=== PATIENT | female | born 1980 | race Caucasian/White ===

== ENCOUNTER 2021-02-07 11:01 | Inpatient (IN) ==
[2021-02-07] MEDS ORDERED: IOPAMIDOL 100 ML BOTTLE IV ONE (11:02)
[2021-02-07 11:45] LABS: POC Blood Urea Nitrogen 3 mg/dL (6-20); POC CO2 23 mmol/L (22-30); POC Chloride 104 mEq/L (96-108); POC Creatinine 0.7 mg/dL (0.6-1.2); POC Glucose, Random 97 mg/dL (70-105); POC Hematocrit 42 % (36-48); POC Potassium 4.3 mEql/L (3.3-5.1); POC Sodium 137 mEq/L (133-145)
--- NOTE | 2021-02-07 12:12 | Emergency Department Note ---
Abdominal Pain HPI General Chief Complaint: Abdominal Pain Stated Complaint: abdominal pain Time Seen by Provider: 02/07/21 11:15 Source: patient Mode of arrival: ambulatory Limitations: no limitations History of Present Illness HPI Narrative: Narrative: Patient presents emergency department with a chief complaint abdominal pain. She reports symptoms started last night they were mild to moderate in severity and more diffuse. This morning the patient reports a few hours ago her pain increased in severity it is more right lower quadrant. There is associated nausea without vomiting patient reports normal bowel movements. She reports history of IBS. Related Data Home Medications Medication Instructions Recorded Confirmed ibuprofen 200 mg capsule (Advil 200 mg PO .COMPLEX 06/19/20 02/07/21 Liqui-Gel) Previous Rx's Medication Instructions Recorded albuterol sulfate 90 mcg/actuation 1 inh INHALATION QID #8.5 g 09/28/20 aerosol inhaler benzonatate 100 mg capsule 100 mg PO TID PRN #30 cap 09/28/20 (Testomas Rivera) oxybutynin chloride 10 mg 10 mg PO QDAY #90 tab 10/16/20 tablet,extended release 24 hr fluticasone propionate 115 2 puff INHALATION BID #12 g 10/24/20 mcg-salmeterol 21 mcg/actuation HFA inhaler (Advair HFA) tramadol 50 mg tablet 50 mg PO BID PRN #60 tab 12/11/20 clonazepam 0.5 mg tablet 0.5 mg PO QDAY PRN #20 tab 12/14/20 desvenlafaxine succinate 50 mg 50 mg PO QDAY 90 Days #90 tab 12/14/20 tablet,extended release 24 hr etonogestrel 0.12 mg-ethinyl 1 vag ring VAGINAL Q4W #3 ea 01/23/21 estradiol 0.015 mg/24 hr vaginal ring (NuvaRing) nortriptyline 10 mg capsule 10 mg PO QHS #90 cap 01/23/21 Allergies Allergy/AdvReac Type Severity Reaction Status Date / Time latex AdvReac Unknown Itching Verified 02/07/21 11:04 peas AdvReac Anaphylaxis Uncoded 12/14/20 16:02 Review of Systems ROS ROS Narrative: Narrative: All systems ED: reviewed and negative except as stated. PFSH Narrative Patient History Narrative: Narrative: Medical/Surgical/Family History All Active Problems (Updated 02/07/21 @ 17:36 by Willard Jamil MD) Acute appendicitis (Acute) Acute appendicitis (Acute) Menorrhagia (Acute) PTSD (post-traumatic stress disorder) (Chronic) Generalized anxiety disorder (Acute) Panic attacks (Chronic) Major depressive disorder, recurrent (Acute) Lupus (systemic lupus erythematosus) (Acute) Chronic fatigue (Acute) Sjogren's syndrome (Acute) Spina bifida occulta (Acute) Chronic insomnia (Acute) Shoulder impingement syndrome (Acute) Lumbosacral dysfunction (Acute) Overactive bladder (Acute) Shortness of breath (Acute) Cough (Acute) Medical History Allergies Arthritis Asthma Chronic fatigue Chronic insomnia Depression Fibromyalgia RICHARD (generalized anxiety disorder) Lupus (systemic lupus erythematosus) Mixed connective tissue disease OCD (obsessive compulsive disorder) Panic disorder [episodic paroxysmal anxiety] PTSD (post-traumatic stress disorder) Sjogren's syndrome Spina bifida occulta Surgical History History of 2008 History of dilatation and curettage 2002 Family History Grandfather Diabetes Maternal Heart attack High cholesterol HBP (high blood pressure) Paternal Mother Cancer Breast cancer Bone cancer Father HBP (high blood pressure) Methamphetamine abuse Sister Somatization disorder Anterior subcapsular polar infantile and juvenile cataract, bilateral Bipolar 1 disorder Family/Other Chronic post-traumatic stress disorder (PTSD) after com bat Social History Smoking Status: Former smoker Alcohol Intake Frequency: holiday/special occasion only Substance Use: marijuana Exam Narrative Narrative: Narrative: Vital signs noted General: Awake. Alert. No distress. HEENT: NCAT PERRL EOMI. No conjunctivitis. No pharyngitis. Membranes moist. No otitis. No effusion. No rhinitis. Neck: No meningeal signs. No PTP. No adenopathy. No stridor. No masses. No STS. Cardiovascular: RRR. No murmur. No rubs. No gallops. Respiratory: No respiratory distress. Breath sounds equal. Lungs clear. Gastrointestinal: Soft. Tenderness to palpation the right lower quadrant there is no guarding rigidity or other peritoneal signs Keane sign is negative, heeltap test is negative Musculoskeletal: No pain. No soft tissue swelling. Good ROM. No signs injury Skin: Warm. Dry. No rash General Limitations: no limitations Course Vital Signs Vital signs: Vital Signs Temperature 97.5 F 02/07/21 11:02 Pulse Rate 87 02/07/21 11:02 Respiratory Rate 16 02/07/21 11:02 Blood Pressure 140/87 02/07/21 11:02 Pulse Oximetry (%) 98 02/07/21 11:02 Temperature 97.5 F 02/07/21 11:02 Pulse Rate 108 H 02/07/21 17:00 Respiratory Rate 15 02/07/21 17:00 Blood Pressure 123/83 02/07/21 17:00 Pulse Oximetry (%) 100 02/07/21 17:00 MDM MDM Narrative Medical decision making narrative: Narrative:Patient presents with right lower quadrant pain labs are concerning for elevated white blood cell count. CT scan shows evidence of uncomplicated appendicitis. I did speak with Dr. Gonzalez who plans to take the patient to surgery Zosyn was started. Lab Data Result diagrams: 02/07/21 11:37 Labs: Lab Results 02/07/21 02/07/21 02/07/21 Range/Units 11:12 11:37 11:37 WBC 13.1 H (4.5-11.0) K/mcL RBC 4.56 (3.59-5.38) M/mcL Hgb 14.4 (11.2-15.7) g/dL Hct 41.5 (34.1-44.9) % POC Hct 42 (36-48) % MCV 91.0 (80.0-100.0) fL MCH 31.6 (26.0-34.0) pg MCHC 34.7 (31.0-36.0) g/dL RDW 11.8 (11.5-14.5) % Plt Count 206 (140-440) K/mcL MPV 11.0 H (7.4-10.4) fL Neut % (Auto) 77.7 (38.0-78.0) % Lymph % (Auto) 14.4 L (15.5-49.0) % [place] % (Auto) 6.5 (1.0-12.0) % Eos % (Auto) 1.1 (0.0-7.0) % Baso % (Auto) 0.3 (0.0-2.0) % Lymph # (Auto) 1.89 (1.50-4.80) K/mcL [place] # (Auto) 0.85 (0.10-0.90) K/mcL Eos # (Auto) 0.14 (0.00-0.70) K/mcL Baso # (Auto) 0.04 (0.00-0.30) K/mcL Absolute Neutrophils 10.17 H (1.80-8.00) K/mcL POC Sodium 137 (133-145) mEq/L POC Potassium 4.3 (3.3-5.1) mEql/L POC Chloride 104 (96-108) mEq/L POC Total CO2 23 (22-30) mmol/L POC BUN 3 L (6-20) mg/dL POC Creatinine 0.7 (0.6-1.2) mg/dL POC Glucose 97 (70-105) mg/dL POC WB Ioniz Calcium 1.20 (1.16-1.32) mmEq/L Total Bilirubin 0.3 (0.1-1.0) mg/dL Direct Bilirubin < 0.2 (0-0.3) mg/dL AST 22 (<32) U/L ALT 31 (<40) U/L Alkaline Phosphatase 71 (39-117) U/L Total Protein 7.2 (5.9-8.4) gm/dL Albumin 4.3 (3.2-5.2) gm/dL Globulin 2.9 (2.2-3.7) gm/dL Lipase 20 (7-60) U/L Urine Color Straw Urine Appearance Clear (Clear) Urine pH 7.0 (5.0-9.0) Ur Specific [place] 1.003 (1.000-1.035) Urine Protein Negative (Negative) mg/dL Urine Glucose (UA) Negative (Negative) mg/dL Urine Ketones Negative (Negative) mg/dL Urine Occult Blood 0.03 (Negative) mg/dL Urine Nitrate Negative (Negative) Urine Bilirubin Negative (Negative) mg/dL Urine Urobilinogen Negative mg/dL Ur Leukocyte Esterase Negative (Negative) /uL Urine RBC 1 (0-3) /hpf Urine WBC 0 (0-4) /hpf Ur Squamous Epith Cells 1 (0-4) /hpf Urine Bacteria Few A (0) /hpf Ur Culture Indicated? Yes ED POC Tests ED POC Tests: ALANNAH - SARS Antigen Negative HCG POC Results Negative Discharge Plan Patient/Caregiver Discharge Instructions Pt seen by [facility]/PA only: No Clinical Impression: Acute appendicitis Patient Disposition: Xfer As Inpt ([facility]) Discharge Date/Time: 02/07/21 15:15
[2021-02-07 12:13] LABS: Basophils # (Auto) 0.04 K/mcL (0.00-0.30); Basophils % (Auto) 0.3 % (0.0-2.0); Eosinophils # (Auto) 0.14 K/mcL (0.00-0.70); Eosinophils % (Auto) 1.1 % (0.0-7.0); Hematocrit 41.5 % (34.1-44.9); Hemoglobin 14.4 g/dL (11.2-15.7); Lymphocytes # (Auto) 1.89 K/mcL (1.50-4.80); Lymphocytes % (Auto) 14.4 % (15.5-49.0); Mean Corpuscular HGB Conc 34.7 g/dL (31.0-36.0); Monocytes # (Auto) 0.85 K/mcL (0.10-0.90); Monocytes % (Auto) 6.5 % (1.0-12.0); Neutrophils % (Auto) 77.7 % (38.0-78.0); Platelet Count 206 K/mcL (140-440); RBC 4.56 M/mcL (3.59-5.38); Red Cell Distribution Width 11.8 % (11.5-14.5); WBC 13.1 K/mcL (4.5-11.0)
[2021-02-07 12:14] LABS: Appearance,Urine CLEAR (Clear); Bacteria,Urine FEW /hpf (0); Bilirubin,Urine Negative (Negative); Color,Urine STRAW; Culture Indicated,Urine Yes; Glucose,Urine (UA) Negative (Negative); Ketones,Urine Negative (Negative); Leukocyte Esterase,Urine Negative /uL (Negative); Nitrate,Urine Negative (Negative); Protein,Urine Negative (Negative); Specific Gravity,Urine 1.003 (1.000-1.035); Urine Blood 0.03 mg/dL (Negative); Urine RBC 1 /hpf (0-3); Urine Squamous Epithelial Cell 1 /hpf (0-4); Urine WBC 0 /hpf (0-4); Urobilinogen,Urine Negative
[2021-02-07 12:32] LABS: ALT/SGPT 31 U/L (<40); AST/SGOT 22 U/L (<32); Albumin 4.3 gm/dL (3.2-5.2); Alkaline Phosphatase 71 U/L (39-117); Bilirubin,Direct < 0.2 mg/dL (0-0.3); Bilirubin,Total 0.3 mg/dL (0.1-1.0); Globulin 2.9 gm/dL (2.2-3.7)
--- NOTE | 2021-02-07 13:05 | Cat Scan Report ---
CLINICAL INFORMATION: Right lower quadrant pain COMPARISON: None. TECHNIQUE: Following enteric contrast, 80 cc of Isovue-370 were injected intravenously, and 60 seconds later, 0.625 mm helical slices were obtained from the mid heart through the subtrochanteric regions. Following reconstruction, 2.5 mm sagittal, coronal and axial reformatted images were processed and reviewed at bone, lung and soft tissue windows. Five minutes later, 0.625 mm helical slices were obtained from the mid heart through the kidneys and viewed at soft tissue windows.The exam was performed using radiation dose optimization techniques including, but not limited to, automated exposure control, adjustment of the mA and/or kV according to patient size and use of iterative reconstruction technique. FINDINGS: The lung bases show subsegmental atelectasis.. No effusions. The visualized heart is grossly normal. Abdominal images show the gallbladder and bile ducts, liver, right kidney, adrenal glands, spleen, pancreas and aorta, including aortic branches, are normal in size, configuration and attenuation without focal lesion. Atrial or nonobstructing stone is seen within the lateral left renal pelvis. There is no free air, free fluid or adenopathy. Pelvic images show normal urinary bladder. Uterus is anteflexed and mildly enlarged: 10.6 x 3.5 cm. Patchy inhomogeneous low-attenuation and the myometrium suggests adenomyosis and/or small fibroids. A 14 mm cyst is seen in the left ovary. Right ovary is normal. The appendix is located in the medial pericecal region and is dilated with a diameter of 11 mm. There are also appendicoliths within the appendiceal lumen, wall thickening and periappendiceal inflammation compatible simple appendicitis. The stomach, small bowel, and large bowel are grossly normal. Bone windows show no osseous abnormality IMPRESSION: 1. Simple appendicitis. The appendix is located in the medial pericecal region. 2. Moderate uterine enlargement with scattered low-attenuation foci in the myometrium compatible with adenomyosis and/or small fibroids. 3. 3 mm nonobstructing stone within the lateral left renal pelvis Interpreted and Authenticated by: Dom Barry 02/07/21
[2021-02-07] MEDS ORDERED: PIPERACILLIN SODIUM/TAZOBACTAM 3.375 GM in DEXTROSE 5% IN WATER 50 ML IV ONE (13:29)
[2021-02-07] MEDS ORDERED: LORazepam 2 MG/ML VIAL IV ONE (13:34)
--- NOTE | 2021-02-07 15:10 | General Surg History&Physical ---
HPI History of Present Illness Patient information: Note initiated : 02/07/21 at 3:03 pm Service Date, if different from initiated Date: [] Patient: Lexus Koch a 40 y/o F admitted on for abdominal pain. Chief Complaint: [] Chief complaint: Acute appendicitis History of present illness: Ms. Koch is a 40 year old F with history of acute onset of lower abdominal pain in her mid hypogastrium about 5 PM last evening. The pain progressed throughout the night. She did not have nausea or vomiting. She finally came to the emergency room where evaluation revealed mild leukocytosis with an inflamed appendix with periappendiceal tissue fluid and appendiceal enlargement. Patient remains symptomatic and is counseled for appendectomy. Review of Systems All systems: reviewed and no additional remarkable complaints except as stated Constitutional Constitutional: Present fatigue, lethargy and malaise Gastrointestinal Gastrointestinal: Present other (Irritable bowel syndrome needing) Musculoskeletal Musculoskeletal: Present arthralgias, muscle cramps and myalgias Additional comments: Fibromyalgia PFSH PFSH All Active Problems (Updated 02/07/21 @ 15:09 by Sabiha Gonzalez MD) Acute appendicitis (Acute) Menorrhagia (Acute) PTSD (post-traumatic stress disorder) (Chronic) Generalized anxiety disorder (Acute) Panic attacks (Chronic) Major depressive disorder, recurrent (Acute) Lupus (systemic lupus erythematosus) (Acute) Chronic fatigue (Acute) Sjogren's syndrome (Acute) Spina bifida occulta (Acute) Chronic insomnia (Acute) Shoulder impingement syndrome (Acute) Lumbosacral dysfunction (Acute) Overactive bladder (Acute) Shortness of breath (Acute) Cough (Acute) Medical History Allergies Arthritis Asthma Chronic fatigue Chronic insomnia Depression Fibromyalgia RICHARD (generalized anxiety disorder) Lupus (systemic lupus erythematosus) Mixed connective tissue disease OCD (obsessive compulsive disorder) Panic disorder [episodic paroxysmal anxiety] PTSD (post-traumatic stress disorder) Sjogren's syndrome Spina bifida occulta Surgical History History of 2008 History of dilatation and curettage 2002 Family History Grandfather Diabetes Maternal Heart attack High cholesterol HBP (high blood pressure) Paternal Mother Cancer Breast cancer Bone cancer Father HBP (high blood pressure) Methamphetamine abuse Sister Somatization disorder Anterior subcapsular polar infantile and juvenile cataract, bilateral Bipolar 1 disorder Family/Other Chronic post-traumatic stress disorder (PTSD) after combat Social History marital status: occupational status: employed occupation: [employer] smoking status: Current every day smoker tobacco type: e-cigarettes and Former smoker quit date: 03/28/18 pack-years: 20 alcohol intake frequency: holiday/special occasion only substance use type: marijuana MEDS/ALLERGIES Home Medications and Allergies Home Medications Medication Instructions Recorded Confirmed Type ibuprofen 200 mg capsule (Advil 200 mg PO .COMPLEX 06/19/20 02/07/21 History Liqui-Gel) albuterol sulfate 90 mcg/actuation 1 inh INHALATION QID #8.5 g 09/28/20 02/07/21 Rx aerosol inhaler benzonatate 100 mg capsule 100 mg PO TID PRN #30 cap 09/28/20 02/07/21 Rx (Testomas Rivera) oxybutynin chloride 10 mg 10 mg PO QDAY #90 tab 10/16/20 02/07/21 Rx tablet,extended release 24 hr fluticasone propionate 115 2 puff INHALATION BID #12 g 10/24/20 02/07/21 Rx mcg-salmeterol 21 mcg/actuation HFA inhaler (Advair HFA) tramadol 50 mg tablet 50 mg PO BID PRN #60 tab 12/11/20 02/07/21 Rx clonazepam 0.5 mg tablet 0.5 mg PO QDAY PRN #20 tab 12/14/20 02/07/21 Rx desvenlafaxine succinate 50 mg 50 mg PO QDAY 90 Days #90 tab 12/14/20 02/07/21 Rx tablet,extended release 24 hr etonogestrel 0.12 mg-ethinyl 1 vag ring VAGINAL Q4W #3 ea 01/23/21 02/07/21 Rx estradiol 0.015 mg/24 hr vaginal ring (NuvaRing) nortriptyline 10 mg capsule 10 mg PO QHS #90 cap 01/23/21 02/07/21 Rx Allergies Allergy/AdvReac Type Severity Reaction Status Date / Time latex AdvReac Unknown Itching Verified 02/07/21 11:04 peas AdvReac Anaphylaxis Uncoded 12/14/20 16:02 Physical Examination Vital Signs Vital signs: Temp Pulse Resp BP Pulse Ox 97.5 F 97 H 16 116/88 98 02/07/21 11:02 02/07/21 14:31 02/07/21 11:02 02/07/21 14:31 02/07/21 14:31 General physical appearance General physical exam: well developed, moderate distress and moderate pain Eyes Eye exam: PERRL and normal ocular movement ENT ENT exam: normal mucosa Head Head exam IM: Present atraumatic, normal inspection and normocephalic Neck Neck exam: no masses, no bruits, trachea midline, no lymphadenopathy and no venous distension Cardiovascular Cardiovascular exam IM: Present normal rate and rhythm, RRR, +S1 and +S2; Absent bradycardia or JVD Respiratory Respiratory exam: normal expansion, normal respiratory effort and clear to auscultation Abdomen Abdomen: Present tender (Tenderness to palpation in hypogastrium and right lower quadrant with guarding) and guarding Integumentary Integumentary: Present no rash, no growths, no abnormal pigmentation and other Neurologic Neurologic: Present normal coordination and normal sensation Musculoskeletal Musculoskeletal: Present normal gait and normal posture Psychiatric Psychiatric: Present oriented to time, oriented to person, oriented to place, speech is normal and memory intact Results Labs Result diagrams: 02/07/21 11:37 Labs: Abnormal lab results 02/07/21 02/07/21 02/07/21 Range/Units 11:12 11:37 11:37 WBC 13.1 H (4.5-11.0) K/mcL MPV 11.0 H (7.4-10.4) fL Lymph % (Auto) 14.4 L (15.5-49.0) % Absolute Neutrophils 10.17 H (1.80-8.00) K/mcL POC BUN 3 L (6-20) mg/dL Urine Bacteria Few A (0) /hpf Diabetes panel 02/07/21 Range/Units 11:37 AST 22 (<32) U/L ALT 31 (<40) U/L Alkaline Phosphatase 71 (39-117) U/L Total Protein 7.2 (5.9-8.4) gm/dL Albumin 4.3 (3.2-5.2) gm/dL Calcium panel 02/07/21 Range/Units 11:37 Albumin 4.3 (3.2-5.2) gm/dL Adrenal panel 02/07/21 Range/Units 11:37 Total Bilirubin 0.3 (0.1-1.0) mg/dL AST 22 (<32) U/L ALT 31 (<40) U/L Alkaline Phosphatase 71 (39-117) U/L Total Protein 7.2 (5.9-8.4) gm/dL Albumin 4.3 (3.2-5.2) gm/dL All other labs normal. A/P Assessment and plan (1) Acute appendicitis: Status: Acute (2) Generalized anxiety disorder: Status: Acute (3) Major depressive disorder, recurrent: Status: Acute Comment: moderately severe Qualifiers: Active/Remission status: currently active Major depression episode severity: moderate Qualified Code(s): F33.1 - Major depressive disorder, recurrent, moderate (4) Sjogren's syndrome: Status: Acute Qualifiers: Sjogren's organ involvement: unspecified organ involvement Qualified Code(s): M35.00 - Sicca syndrome, unspecified (5) PTSD (post-traumatic stress disorder): Status: Chronic Narrative A/P Narrative: Patient is counseled for laparoscopic appendectomy. It will be performed later this afternoon. Zosyn 3.375 g IV every 6 Time Spent With Patient Time: Total time spent is greater than 50% in coordination of care (as documented) at patient's floor/unit and/or counseling patient:
[2021-02-07] MEDS ORDERED: PROPOFOL 200 MG/20 ML VIAL IV ONE (15:28)
[2021-02-07] MEDS ORDERED: fentaNYL 100 MCG/2 ML VIAL IV ONE ×2 (15:28→23:30)
[2021-02-07] MEDS ORDERED: LIDOCAINE HCL/PF 100 MG/5 ML SYRINGE IV ONE ×2 (15:28→23:30)
[2021-02-07] MEDS ORDERED: ONDANSETRON 4 MG/2 ML VIAL ONE ×2 (15:28→23:30)
[2021-02-07] MEDS ORDERED: SUGAMMADEX SODIUM 200 MG/2 ML VIAL IV ONE ×2 (15:28→23:30)
[2021-02-07] MEDS ORDERED: ROCURONIUM 10 MG/ML ML IV ONE ×2 (15:28→23:30)
[2021-02-07] MEDS ORDERED: DEXAMETHASONE 10 MG/ML VIAL ONE ×2 (15:28→23:30)
[2021-02-07] MEDS ORDERED: MIDAZOLAM 2 MG/2 ML VIAL ONE (15:28)
[2021-02-07] MEDS ORDERED: KETAMINE 50 MG/ML Syringe (ANEST) IV ONE ×2 (15:28→23:30)
[2021-02-07] MEDS ORDERED: ESMOLOL 100 MG/10 ML VIAL IV ONE (15:28)
[2021-02-07] MEDS ORDERED: GLYCOPYRROLATE 0.2 MG/ML VIAL IV ONE ×2 (15:28→23:30)
[2021-02-07] MEDS ORDERED: BENZOCAINE/MENTHOL 1 LOZENGE PO PRN (16:10)
[2021-02-07] MEDS ORDERED: MEPERIDINE 50 MG/ML VIAL IM PRN (16:10)
[2021-02-07] MEDS ORDERED: ACETAMINOPHEN 1,000 MG/100 ML BAG IV ONE (16:10)
[2021-02-07] MEDS ORDERED: IPRATROPIUM/ALBUTEROL 3 ML AMPUL.NEB NEB PRN (16:10)
[2021-02-07] MEDS ORDERED: ONDANSETRON 4 MG/2 ML VIAL IV PRN (16:10)
[2021-02-07] MEDS ORDERED: PROMETHAZINE 25 MG/ML VIAL IM PRN (16:10)
[2021-02-07] MEDS ORDERED: KETOROLAC 30 MG/ML VIAL IV PRN (16:10)
[2021-02-07] MEDS ORDERED: LACTATED RINGERS 1,000 ML IV SCH (16:15)
[2021-02-07] MEDS ORDERED: ONDANSETRON 4 MG ODT TABLET SL PRN (16:19)
[2021-02-07] MEDS ORDERED: HYDROmorphone 1 MG/ML SYRINGE IV PRN (16:19)
--- NOTE | 2021-02-07 16:19 | Brief Operative Note ---
Brief Operative Note Date of procedure: 02/07/21 Pre-op diagnosis: ACUTE APPENDICITIS Post-op diagnosis: other (ACUTE APPENDICITIS) Procedure: LAPAROSCOPIC APPENDECTOMY Grafts/Implants: No Anesthesia: GETA Findings: ACUTE SUPPURATIVE APPENDICITIS Complications: none Surgeon: Sabiha Gonzalez Estimated blood loss (cc): 10 Specimens Removed/Pathology: other (APPENDIX) Condition: stable Disposition: PACU
[2021-02-07] MEDS: fentaNYL 100 MCG/2 ML VIAL IV PRN ×2 (16:55→16:58)
[2021-02-07] MEDS: LACTATED RINGERS 1,000 ML IV SCH (17:12)
[2021-02-07] MEDS: PIPERACILLIN SODIUM/TAZOBACTAM 3.375 GM in DEXTROSE 5% IN WATER 50 ML IV SCH (18:02)
[2021-02-07] MEDS: ACETAMINOPHEN 1,000 MG/100 ML BAG IV SCH ×2 (18:50→23:21)
[2021-02-07] MEDS: HYDROmorphone 0.5 MG/0.5 ML SYRINGE IV PRN (20:26)
[2021-02-07] MEDS ORDERED: LACTATED RINGERS 1,000 ML IV ONE (20:49)
[2021-02-07] MEDS: 0.9 % SODIUM CHLORIDE 10 ML SYRINGE IV SCH (20:52)
[2021-02-07] MEDS: ONDANSETRON 4 MG/2 ML VIAL IV PRN (21:11)
[2021-02-07 21:18] LABS: POC Blood Urea Nitrogen 4 mg/dL (6-20); POC CO2 18 mmol/L (22-30); POC Calcium, Ionized 1.08 mmEq/L (1.16-1.32); POC Chloride 104 mEq/L (96-108); POC Creatinine 0.8 mg/dL (0.6-1.2); POC Glucose, Random 197 mg/dL (70-105); POC Hematocrit 33 % (36-48); POC Sodium 135 mEq/L (133-145)
[2021-02-07] MEDS ORDERED: ALBUTEROL SULFATE 200 PUFF INHALER INH PRN (21:52)
[2021-02-07] MEDS ORDERED: clonazePAM 0.5 MG TABLET PO PRN (21:52)
[2021-02-07] MEDS ORDERED: traMADol 50 MG TABLET PO PRN (21:52)
[2021-02-07 21:54] LABS: Hemoglobin 11.6 g/dL (11.2-15.7)
[2021-02-07] MEDS ORDERED: METOPROLOL TARTRATE 5 MG/5 ML VIAL IV PRN (21:54)
[2021-02-07] MEDS ORDERED: IBUPROFEN 200 MG PO SCH (22:00)
--- NOTE | 2021-02-07 22:12 | Internal Med History&Physical ---
HPI History of Present Illness Patient information: Note initiated : 02/07/21 at 9:58 pm Service Date, if different from initiated Date: [] Patient: Lexus Koch a 40 y/o F admitted on for abdominal pain. Chief Complaint: [tachycardia and orthostatic hypotension] Chief complaint: tachycardia and orthostatic hypotension History of present illness: Ms. Koch is a 40 year old F history of anxiety and irritable bowel syndrome, presented to the ED earlier today and was being diagnosed with appendicitis. Dr. Gonzalez performed an uncomplicated laparoscopic appendectomy with estimated blood loss of 5cc. She tolerated the procedure quite well. During her recovery in PACU, she developed sinus tachycardia with heart rate up from 110s bpm to 150s bpm, and also showing positive orthostatic hypotension. Patient denies any chest pain. She is c/o palpitation as well as anxiety about her overall condition and prognosis. She denies any shortness of breath. Currently denies any abdominal pain as well as any nausea or vomiting. She admitted to have episodes of diarrhea yesterday, and had been placed NPO today since presenting to the ED. ECG performed showing sinus tachycardia, no signs of acute ischemia otherwise. She is receiving her 1st L of fluid bolus. Constitutional Constitutional: Present as per HPI; Absent chills, excessive sweating, fatigue, fever(s) or weakness EENT Eyes: Absent blurry vision, change in vision, loss of vision or other visual disturbances Ears: Absent decreased hearing or tinnitus Nose, mouth and throat: Absent abnormal hearing, dry mouth, headache(s), nasal congestion or sore throat Cardiovascular Cardiovascular: Present palpatations; Absent chest pain, chest pain at rest, edema or irregular heart rhythm Respiratory Respiratory: Absent cough, dyspnea or wheezing Gastrointestinal Gastrointestinal: Absent abdominal pain, constipation, diarrhea, nausea or vomiting Musculoskeletal Musculoskeletal: Absent back pain, deformity, limited range of motion, muscle cramps, muscle weakness or numbness Integumentary Integumentary: Absent lesions, rash or wounds Neurological Neurological: Absent focal weakness, headache(s) or numbness Psychiatric Psychiatric: Present anxiety; Absent depression or hallucinations PFSH PFSH All Active Problems (Updated 02/07/21 @ 22:05 by Michael Higgins MD) Tachycardia (Acute) Acute appendicitis (Acute) Acute appendicitis (Acute) Menorrhagia (Acute) PTSD (post-traumatic stress disorder) (Chronic) Generalized anxiety disorder (Acute) Panic attacks (Chronic) Major depressive disorder, recurrent (Acute) Lupus (systemic lupus erythematosus) (Acute) Chronic fatigue (Acute) Sjogren's syndrome (Acute) Spina bifida occulta (Acute) Chronic insomnia (Acute) Shoulder impingement syndrome (Acute) Lumbosacral dysfunction (Acute) Overactive bladder (Acute) Shortness of breath (Acute) Cough (Acute) Medical History Allergies Arthritis Asthma Chronic fatigue Chronic insomnia Depression Fibromyalgia RICHARD (generalized anxiety disorder) Lupus (systemic lupus erythematosus) Mixed connective tissue disease OCD (obsessive compulsive disorder) Panic disorder [episodic paroxysmal anxiety] PTSD (post-traumatic stress disorder) Sjogren's syndrome Spina bifida occulta Surgical History History of 2008 History of dilatation and curettage 2002 Family History Grandfather Diabetes Maternal Heart attack High cholesterol HBP (high blood pressure) Paternal Mother Cancer Breast cancer Bone cancer Father HBP (high blood pressure) Methamphetamine abuse Sister Somatization disorder Anterior subcapsular polar infantile and juvenile cataract, bilateral Bipolar 1 disorder Family/Other Chronic post-traumatic stress disorder (PTSD) after combat Social History marital status: occupational status: employed occupation: anchor.travel smoking status: Current every day smoker tobacco type: e-cigarettes and Former smoker quit date: 03/28/18 pack-years: 20 alcohol intake frequency: holiday/special occasion only substance use type: marijuana MEDS/ALLERGIES Home Medications and Allergies Home Medications Medication Instructions Recorded Confirmed Type ibuprofen 200 mg capsule (Advil 200 mg PO .COMPLEX 06/19/20 02/07/21 History Liqui-Gel) albuterol sulfate 90 mcg/actuation 1 inh INHALATION QID #8.5 g 09/28/20 02/07/21 Rx aerosol inhaler oxybutynin chloride 10 mg 10 mg PO QDAY #90 tab 10/16/20 02/07/21 Rx tablet,extended release 24 hr tramadol 50 mg tablet 50 mg PO BID PRN #60 tab 12/11/20 02/07/21 Rx clonazepam 0.5 mg tablet 0.5 mg PO QDAY PRN #20 tab 12/14/20 02/07/21 Rx etonogestrel 0.12 mg-ethinyl 1 vag ring VAGINAL Q4W #3 ea 01/23/21 02/07/21 Rx estradiol 0.015 mg/24 hr vaginal ring (NuvaRing) nortriptyline 10 mg capsule 10 mg PO QHS #90 cap 01/23/21 02/07/21 Rx desvenlafaxine 50 mg 50 mg PO QHS 02/07/21 02/07/21 History tablet,extended release 24 hour Allergies Allergy/AdvReac Type Severity Reaction Status Date / Time latex AdvReac Unknown Itching Verified 02/07/21 11:04 peas AdvReac Anaphylaxis Uncoded 12/14/20 16:02 EXAM Constitutional Vitals: Temp Pulse Resp BP Pulse Ox 36.6 C 153 H 15 97/71 95 02/07/21 19:15 02/07/21 21:04 02/07/21 17:00 02/07/21 21:04 02/07/21 21:04 General appearance: average body habitus, cooperative and no acute distress Head Head exam: Present atraumatic and normocephalic Eye Eye exam: Present EOMI and PERRL ENT ENT exam: Present mucous membranes moist, normal exam and normal external ear exam Neck Neck exam: Present normal inspection; Absent lymphadenopathy, tenderness or thyromegaly Respiratory Respiratory exam: Absent accessory muscle use, respiratory distress or wheezes Cardiovascular Cardiovascular exam: Present tachycardia; Absent JVD GI/Abdominal GI/Abdominal exam: Present normal bowel sounds and soft; Absent organomegaly or tenderness Additional comments: 3 laparoscopic surgical incisions without tenderness to palpation or active bleeding Extremities Exam Extremities exam: Present full ROM, normal capillary refill and normal inspection; Absent tenderness Neurological Exam Neurological exam: Present alert, CN II-XII intact and oriented X3; Absent motor sensory deficit Psychiatric Psychiatric exam: Present normal affect and normal mood; Absent anxious or depressed Skin Skin exam: Present dry and intact DATA Data Completed and Pending Labs: Labs from last 24 hours 02/07/21 02/07/21 02/07/21 21:11 20:54 11:37 WBC RBC Hgb 11.6 Hct 35.0 POC Hct 33 L 42 MCV MCH MCHC RDW Plt Count MPV Neut % (Auto) Lymph % (Auto) [place] % (Auto) Eos % (Auto) Baso % (Auto) Lymph # (Auto) [place] # (Auto) Eos # (Auto) Baso # (Auto) Absolute Neutrophils POC Sodium 135 137 POC Potassium 4.0 4.3 POC Chloride 104 104 POC Total CO2 18 L 23 POC BUN 4 L 3 L POC Creatinine 0.8 0.7 POC Glucose 197 H 97 POC WB Ioniz Calcium 1.08 L 1.20 Total Bilirubin 0.3 Direct Bilirubin < 0.2 AST 22 ALT 31 Alkaline Phosphatase 71 Total Protein 7.2 Albumin 4.3 Globulin 2.9 Lipase 20 Urine Color Urine Appearance Urine pH Ur Specific [place] Urine Protein Urine Glucose (UA) Urine Ketones Urine Occult Blood Urine Nitrate Urine Bilirubin Urine Urobilinogen Ur Leukocyte Esterase Urine RBC Urine WBC Ur Squamous Epith Cells Urine Bacteria Ur Culture Indicated? 02/07/21 02/07/21 11:37 11:12 WBC 13.1 H RBC 4.56 Hgb 14.4 Hct 41.5 POC Hct MCV 91.0 MCH 31.6 MCHC 34.7 RDW 11.8 Plt Count 206 MPV 11.0 H Neut % (Auto) 77.7 Lymph % (Auto) 14.4 L [place] % (Auto) 6.5 Eos % (Auto) 1.1 Baso % (Auto) 0.3 Lymph # (Auto) 1.89 [place] # (Auto) 0.85 Eos # (Auto) 0.14 Baso # (Auto) 0.04 Absolute Neutrophils 10.17 H POC Sodium POC Potassium POC Chloride POC Total CO2 POC BUN POC Creatinine POC Glucose POC WB Ioniz Calcium Total Bilirubin Direct Bilirubin AST ALT Alkaline Phosphatase Total Protein Albumin Globulin Lipase Urine Color Straw Urine Appearance Clear Urine pH 7.0 Ur Specific [place] 1.003 Urine Protein Negative Urine Glucose (UA) Negative Urine Ketones Negative Urine Occult Blood 0.03 Urine Nitrate Negative Urine Bilirubin Negative Urine Urobilinogen Negative Ur Leukocyte Esterase Negative Urine RBC 1 Urine WBC 0 Ur Squamous Epith Cells 1 Urine Bacteria Few A Ur Culture Indicated? Yes A/P Assessment and plan (1) Acute appendicitis: Status: Acute Qualifiers: Acute appendicitis type: unspecified acute appendicitis type Qualified Code(s): K35.80 - Unspecified acute appendicitis (2) Generalized anxiety disorder: Status: Acute (3) Tachycardia: Status: Acute Narrative A/P Narrative: Assessment and Plans: 1. Sinus tachycardia, post-surgically: DDx: hypovolemic vs cardiogenic vs neurocardiogenic vs endocrine Currently receiving 1st L of fluid bolus, to be followed by LR@125cc/hr as maintenance fluid to make sure no dehydration 2D echocardiogram Serial troponin TSH with reflexive free T4 to rule out hyperthyroidism Cortisol, random and AM, to rule out hypoadrenalism (if values equivocal but still clinically suspected, will proceed with ACTH stimulation test) Lopressor IV PRN tachycardia HR>120bpm, hold if SBP<90 and/or DBP<50mmHg Clonazepam PRN anxiety/panic attack 2. Acute appendectomy s/p laparoscopic appendectomy: Post surgical management as per primary team Dr. Gonzalez with diet order and symptoms (pain) control measures 3. Generalized anxiety disorder: Desvenlafaxine Nortriptyline Clonazepam PRN anxiety/panic attack Thank you for the consultation, please do not hesitate to call for further questions. Will continue to follow Time Spent With Patient Time: Total time spent is greater than 50% in coordination of care (as documented) at patient's floor/unit and/or counseling patient: Total time spent with greater than 50% in coordination of care (as documented) at patient's floor/unit and/or counseling patient:: 25 - 35 minutes
[2021-02-07] MEDS ORDERED: IOPAMIDOL 125 ML BOTTLE IV ONE (22:32)
[2021-02-07] MEDS ORDERED: 0.9 % SODIUM CHLORIDE 250 ML IV SCH (23:00)
[2021-02-07] MEDS ORDERED: TRANEXAMIC ACID 1,000 MG/10 ML VIAL ONE (23:30)
[2021-02-07] MEDS ORDERED: MIDAZOLAM 5 MG/5 ML VIAL ONE (23:30)
[2021-02-07] MEDS ORDERED: CALCIUM CHLORIDE 1,000 MG/10 ML SYRINGE IV ONE (23:30)
[2021-02-07] MEDS ORDERED: ETOMIDATE 20 MG/10 ML VIAL IV ONE (23:30)
[2021-02-08] MEDS ORDERED: 0.9 % SODIUM CHLORIDE 250 ML IV SCH ×2 (00:30→02:00)
[2021-02-08] MEDS ORDERED: IPRATROPIUM/ALBUTEROL 3 ML AMPUL.NEB NEB PRN (00:47)
[2021-02-08] MEDS ORDERED: HYDROmorphone 0.5 MG/0.5 ML SYRINGE IV PRN (00:47)
[2021-02-08] MEDS ORDERED: MEPERIDINE 25 MG/ML VIAL IV PRN ×2 (00:47→01:47)
[2021-02-08] MEDS ORDERED: BENZOCAINE/MENTHOL 1 LOZENGE PO PRN (00:47)
[2021-02-08] MEDS ORDERED: fentaNYL 100 MCG/2 ML VIAL IV PRN (00:47)
[2021-02-08] MEDS ORDERED: TRANEXAMIC ACID 1,000 MG/10 ML VIAL IV ONE (00:47)
[2021-02-08] MEDS ORDERED: ONDANSETRON 4 MG/2 ML VIAL IV PRN (00:47)
[2021-02-08] MEDS ORDERED: LACTATED RINGERS 1,000 ML IV SCH (01:00)
--- NOTE | 2021-02-08 01:42 | Brief Operative Note ---
Brief Operative Note Date of procedure: 02/08/21 Pre-op diagnosis: postoperative hemorrhage with hypotension Post-op diagnosis: other (major intraperitoneal hemorrhage with no major vessel seen) Procedure: exploratory laparotomy with evacuation of clot Grafts/Implants: No (satnam drain #10 in pelvis) Anesthesia: GETA Findings: large volume of old blood and clot in pelvis with unclotted blood in upper abdomen ; no bleeding from port sites or operative sites area of mesoappendix and appendiceal stump witout bleeding; no fresh blood after evacuation of blood and clot but slow oozing ; all port sites closed; mesentery of small bowel and colon without evidence of bleeding; about 1250cc of blood and clot removed; received tranexemic acid intraoperative Complications: none Surgeon: Sabiha Gonzalez Specimens Removed/Pathology: none sent Condition: stable Disposition: PACU
[2021-02-08] MEDS: MEPERIDINE 25 MG/ML VIAL IV PRN ×2 (01:50→02:00)
[2021-02-08] MEDS ORDERED: MEPERIDINE 50 MG/ML VIAL ONE (01:52)
[2021-02-08] MEDS ORDERED: METOPROLOL TARTRATE 5 MG/5 ML VIAL IV ONE (01:59)
[2021-02-08] MEDS ORDERED: TRANEXAMIC ACID 1,000 MG/10 ML VIAL ONE (02:00)
[2021-02-08] MEDS ORDERED: METOPROLOL TARTRATE 5 MG/5 ML VIAL IV PRN ×2 (02:04→02:07)
[2021-02-08 02:07] LABS: POC Blood Urea Nitrogen 4 mg/dL (6-20); POC CO2 22 mmol/L (22-30); POC Calcium, Ionized 1.19 mmEq/L (1.16-1.32); POC Chloride 104 mEq/L (96-108); POC Creatinine 0.7 mg/dL (0.6-1.2); POC Glucose, Random 141 mg/dL (70-105); POC Hematocrit 42 % (36-48); POC Potassium 4.8 mEql/L (3.3-5.1); POC Sodium 134 mEq/L (133-145)
[2021-02-08] MEDS: PIPERACILLIN SODIUM/TAZOBACTAM 3.375 GM in DEXTROSE 5% IN WATER 50 ML IV SCH ×4 (03:12→17:24)
[2021-02-08] MEDS: LACTATED RINGERS 1,000 ML IV SCH ×4 (03:15→23:25)
[2021-02-08] MEDS: HYDROmorphone 0.5 MG/0.5 ML SYRINGE IV PRN ×6 (03:26→23:22)
[2021-02-08] MEDS: ACETAMINOPHEN 1,000 MG/100 ML BAG IV SCH ×2 (04:24→12:02)
--- NOTE | 2021-02-08 04:43 | Cat Scan Report ---
CLINICAL INFORMATION: Status post appendectomy. Abdominal pain and hypotension COMPARISON: None. TECHNIQUE: 80 cc of Isovue-370 were injected intravenously, and 60 seconds later, 0.625 mm helical slices were obtained from the mid heart through the subtrochanteric regions. Following reconstruction, 2.5 mm sagittal, coronal and axial reformatted images were processed and reviewed at bone, lung and soft tissue windows. Five minutes later, 0.625 mm helical slices were obtained from the mid heart through the kidneys and viewed at soft tissue windows.The exam was performed using radiation dose optimization techniques including, but not limited to, automated exposure control, adjustment of the mA and/or kV according to patient size and use of iterative reconstruction technique. FINDINGS: The lung bases show subsegmental atelectasis-expected. No effusions. The visualized heart is grossly normal. Abdominal images show the gallbladder and bile ducts, liver, adrenal glands, spleen, pancreas and aorta, including aortic branches, are normal in size, configuration and attenuation without focal lesion. Two nonobstructing stones within the calyces left kidney are both approximately 3 mm. Both kidneys are, otherwise, normal. Pelvic images show normal urinary bladder. Uterus is anteflexed and mildly enlarged: 10.6 x 3.5 cm. Patchy inhomogeneous low-attenuation and the myometrium suggests adenomyosis and/or small fibroids. A 14 mm cyst is seen in the left ovary. Right ovary is normal. Patient is status post appendectomy. Moderate hemoperitoneum fills the true and false pelvis with smaller amounts of free intraperitoneal fluid in the perihepatic and perisplenic region. Source for hemorrhage is not identified. Tiny amounts of free peritoneal air seen in the nondependent abdomen and pelvis have expected in the immediate postoperative period. Midline laparotomy incision appears normal. Bone windows show no osseous abnormality IMPRESSION: 1. Moderate hemoperitoneum in the pelvic region. Source for hemorrhage is not identified on the basis of CT. 2. Two nonobstructing stones mid calyces left kidney-both less than 3 mm Interpreted and Authenticated by: Dom Barry 02/08/21
[2021-02-08] MEDS: 0.9 % SODIUM CHLORIDE 10 ML SYRINGE IV SCH ×3 (06:30→23:37)
[2021-02-08] MEDS: METOPROLOL TARTRATE 5 MG/5 ML VIAL IV SCH (06:41)
[2021-02-08 07:11] LABS: Basophils # (Auto) 0.02 K/mcL (0.00-0.30); Basophils % (Auto) 0.1 % (0.0-2.0); Eosinophils # (Auto) 0 K/mcL (0.00-0.70); Eosinophils % (Auto) 0 % (0.0-7.0); Hemoglobin 10.5 g/dL (11.2-15.7); Lymphocytes # (Auto) 0.93 K/mcL (1.50-4.80); Lymphocytes % (Auto) 5.7 % (15.5-49.0); Mean Cell Volume 88.8 fL (80.0-100.0); Mean Corpuscular HGB Conc 33.9 g/dL (31.0-36.0); Mean Platelet Volume 11.4 fL (7.4-10.4); Monocytes # (Auto) 1.01 K/mcL (0.10-0.90); Monocytes % (Auto) 6.2 % (1.0-12.0); Platelet Count 144 K/mcL (140-440); RBC 3.49 M/mcL (3.59-5.38); Red Cell Distribution Width 13.2 % (11.5-14.5); WBC 16.4 K/mcL (4.5-11.0)
[2021-02-08 07:26] LABS: ALT/SGPT 22 U/L (<40); AST/SGOT 20 U/L (<32); Albumin 3.7 gm/dL (3.2-5.2); Albumin/Globulin Ratio 1.6 (1.0-2.3); Alkaline Phosphatase 47 U/L (39-117); Bilirubin,Direct < 0.2 mg/dL (0-0.3); Bilirubin,Total 0.5 mg/dL (0.1-1.0); Blood Urea Nitrogen 5 mg/dL (6-20); Calcium 9.1 mg/dL (8.6-10.4); Carbon Dioxide 24 mmol/L (22-30); Chloride 101 mmol/L (96-108); Globulin 2.3 gm/dL (2.2-3.7); Glomerular Filtration Rate 81; Glucose 123 mg/dL (70-105); Lactate Dehydrogenase 174 U/L (135-225); Phosphorous 3.6 mg/dL (2.5-4.5); Triglycerides 101 mg/dL (<150)
[2021-02-08] MEDS: LORazepam 1 MG TABLET PO PRN ×2 (07:35→18:47)
[2021-02-08] MEDS: PANTOPRAZOLE 40 MG TABLET PO SCH (07:35)
[2021-02-08] MEDS: oxyCODONE/APAP 5/325MG TABLET PO PRN ×2 (07:35→12:29)
[2021-02-08 09:09] LABS: INR 1.1 (0.9-1.1); Prothrombin Time 14.6 sec (11.9-14.5)
[2021-02-08] MEDS: OXYBUTYNIN CHLORIDE 5 MG TAB.XL.24H PO SCH (10:16)
--- NOTE | 2021-02-08 12:18 | Internal Med Progress Note ---
SUBJECTIVE Subjective Patient information: Note initiated : 02/08/21 at 12:11 pm Service Date, if different from initiated Date: [] Patient: Lexus Koch a 40 y/o F admitted on 02/07/21 for abdominal pain. Chief Complaint: [postop hypotension and tachycarida] Interval history: History of present illness: Ms. Koch is a 40 year old F history of anxiety and irritable bowel syndrome, presented to the ED earlier today and was being diagnosed with appendicitis. Dr. Gonzalez performed an uncomplicated laparoscopic appendectomy with estimated blood loss of 5cc. She tolerated the procedure quite well. During her recovery in PACU, she developed sinus tachycardia with heart rate up from 110s bpm to 150s bpm, and also showing positive orthostatic hypotension. Patient denies any chest pain. She is c/o palpitation as well as anxiety about her overall condition and prognosis. She denies any shortness of breath. Currently denies any abdominal pain as well as any nausea or vomiting. She admitted to have episodes of diarrhea yesterday, and had been placed NPO today since presenting to the ED. ECG performed showing sinus tachycardia, no signs of acute ischemia otherwise. She is receiving her 1st L of fluid bolus. 02/08: Patient developed post-operative hemorrhage and hypotension. Dr. Gonzalez took her back to the OR at 0300 this morning and performed exploratory laparotomy with evacuation of clot, about 1250cc of blood and clot removed, with JORDAN drain placed. Patient currently c/o abdominal pain, diffused, mild to moderate. Denies chest pain or palpitation. Denies any SOB. Denies anxiety. Troponin <0.01, <0.01. Random cortisol 3.9, AM cortisol pending. TSH 1.38. 2D echocardiogram pending. Constitutional Vitals: Vital Signs Temp Pulse Resp BP Pulse Ox 37.0 C 86 16 112/67 97 02/08/21 08:01 02/08/21 10:41 02/08/21 10:41 02/08/21 11:08 02/08/21 10:41 Period Temp Pulse Resp BP Sys/Dalton Pulse Ox Last 24 Hr 36.6 C-37.7 C 74-166 8-23 62-168/53-109 87-100 Intake and Output 02/07/21 02/08/21 02/08/21 21:59 05:59 13:59 Intake Total 1400 4155 50 Output Total 355 2050 1600 Balance 1045 2105 -1550 Weight 76.975 kg Intake & Output: Intake & Output 02/07/21 02/08/21 02/08/21 21:59 05:59 13:59 Intake Total 1400 4155 50 Output Total 355 2050 1600 Balance 1045 2105 -1550 Weight 76.975 kg Intake: IV 300 2000 50 Lactated Ringers 1,000 ml @ 125 2000 mls/hr IV .Q8H QUETA Rx#: [id number] Zosyn 3.375 gm In Dextrose 5% 100 50 in Water 50 ml @ 100 mls/hr IV Q6H QUETA Rx#:[id number] Oral 60 Blood Product 595 IV - Manual Only 1100 1500 Output: Drainage 180 Right Lower Abdomen 180 Urine Catheter Amount 488 933 4762 Void Amount 50 Estimated Blood Loss 5 1000 Other: Urine Appearance Clear Clear Clear Uretheral ([place]) Clear Clear Clear Urine Color Bright Yellow Straw Pale Uretheral ([place]) Pale Straw Straw Urine Odor Normal General appearance: cooperative, no acute distress and obese Head Head exam: Present atraumatic and normal inspection Eye Eye exam: Present normal appearance ENT ENT exam: Present mucous membranes moist, normal exam and normal external ear exam Neck Neck exam: Present normal inspection Respiratory Respiratory exam: Present normal respiratory exam Cardiovascular Cardiovascular exam: Present normal rate and rhythm GI/Abdominal GI/Abdominal exam: Present diminished bowel sounds Additional comments: abdominal surgical incision for ex lap with JORDAN drain X1 in place with sangueous discharge. Back Exam Back exam: Present normal inspection Neurological Exam Neurological exam: Present alert and oriented X3 Skin Skin exam: Present intact and warm OBJ DATA Labs CBC & Chem 7: 02/08/21 05:30 02/08/21 05:30 Labs: Abnormal Lab Results 02/08/21 02/08/21 02/08/21 08:20 05:30 05:30 WBC 16.4 H RBC 3.49 L Hgb 10.5 L Hct 31.0 L POC Hct MPV 11.4 H Neut % (Auto) 88.0 H Lymph % (Auto) 5.7 L Lymph # (Auto) 0.93 L [place] # (Auto) 1.01 H Absolute Neutrophils 14.42 H PT 14.6 H POC Total CO2 POC BUN BUN 5 L Glucose 123 H POC Glucose POC WB Ioniz Calcium Urine Bacteria 02/08/21 02/07/21 02/07/21 01:55 21:11 11:37 WBC RBC Hgb Hct POC Hct 33 L MPV Neut % (Auto) Lymph % (Auto) Lymph # (Auto) [place] # (Auto) Absolute Neutrophils PT POC Total CO2 18 L POC BUN 4 L 4 L 3 L BUN Glucose POC Glucose 141 H 197 H POC WB Ioniz Calcium 1.08 L Urine Bacteria 02/07/21 02/07/21 11:37 11:12 WBC 13.1 H RBC Hgb Hct POC Hct MPV 11.0 H Neut % (Auto) Lymph % (Auto) 14.4 L Lymph # (Auto) [place] # (Auto) Absolute Neutrophils 10.17 H PT POC Total CO2 POC BUN BUN Glucose POC Glucose POC WB Ioniz Calcium Urine Bacteria Few A Meds: Medications Albuterol Sulfate (Albuterol Sulfate 200 Puff Inhaler) 1 puff INH QIDP PRN PRN Reason: Wheezing Clonazepam (Clonazepam 0.5 Mg Tablet) 0.5 mg PO QDAY PRN PRN Reason: severe anxiety Hydromorphone HCl (Hydromorphone 0.5 Mg/0.5 Ml Syringe) 1 mg IV Q2HP PRN; Protocol PRN Reason: Per Pain Protocol Last Admin: 02/08/21 11:01 Dose: 1 mg Documented by: Lactated Ringer's (Lactated Ringers) 1,000 mls @ 125 mls/hr IV .Q8H [facility] Last Admin: 02/08/21 07:00 Dose: 125 mls/hr Documented by: Piperacillin Sod/Tazobactam (Sod 3.375 gm/ Dextrose) 50 mls @ 100 mls/hr IV Q6H [facility]; Protocol Last Admin: 02/08/21 12:00 Dose: 100 mls/hr Documented by: Acetaminophen (Ofirmev) 1,000 mg in 100 mls @ 200 mls/hr IV Q6H [facility] Stop: 02/08/21 18:14 Last Admin: 02/08/21 12:02 Dose: 130 mls/hr Documented by: Sodium Chloride (Sodium Chloride 0.9%) 250 mls @ 20 mls/hr IV .[id number] [facility] Stop: 02/08/21 12:59 Last Admin: 02/08/21 03:15 Dose: Not Given Documented by: Sodium Chloride (Sodium Chloride 0.9%) 250 mls @ 20 mls/hr IV .[id number] [facility] Stop: 02/08/21 14:29 Last Admin: 02/08/21 03:16 Dose: Not Given Documented by: Lorazepam (Lorazepam 1 Mg Tablet) 1 mg PO Q6HP PRN PRN Reason: ANXIETY/SEDATION Last Admin: 02/08/21 07:35 Dose: 1 mg Documented by: Nortriptyline HCl (Nortriptyline 10 Mg Capsule) 10 mg PO QHS [facility] Ondansetron HCl (Ondansetron 4 Mg/2 Ml Vial) 4 mg IV Q6HP PRN PRN Reason: Nausea And Vomiting Last Admin: 02/07/21 21:11 Dose: 4 mg Documented by: Ondansetron HCl (Ondansetron 4 Mg Odt Tablet) 4 mg SL Q6HP PRN PRN Reason: Nausea And Vomiting Oxybutynin Chloride (Oxybutynin Chloride 5 Mg Tab.Xl.24h) 10 mg PO QDAY [facility] Last Admin: 02/08/21 10:16 Dose: 10 mg Documented by: Oxycodone/Acetaminophen (Oxycodone/Apap 5/325mg Tablet) 1 tab PO Q4HP PRN; Protocol PRN Reason: Per Pain Protocol Last Admin: 02/08/21 07:35 Dose: 1 tab Documented by: Pantoprazole Sodium (Pantoprazole 40 Mg Tablet) 40 mg PO QAMAC [facility] Last Admin: 02/08/21 07:35 Dose: 40 mg Documented by: Desvenlafaxine 50 Mg Tablet Extended Release 24 Hr 1 dose PO QHS [facility] Sodium Chloride (0.9 % Sodium Chloride 10 Ml Syringe) 10 ml IV Q8 [facility] Last Admin: 02/08/21 12:00 Dose: 10 ml Documented by: Tramadol HCl (Tramadol 50 Mg Tablet) 50 mg PO BID PRN; Protocol PRN Reason: pain Last Admin: 02/08/21 07:03 Dose: 50 mg Documented by: A/P Assessment and plan (1) Acute appendicitis: Status: Acute Qualifiers: Acute appendicitis type: unspecified acute appendicitis type Qualified Code(s): K35.80 - Unspecified acute appendicitis (2) Generalized anxiety disorder: Status: Acute (3) Tachycardia: Status: Acute (4) Hemorrhage postprocedure: Status: Acute Narrative A/P Narrative: Assessment and Plans: 1. Sinus tachycardia, post-surgically: DDx: hypovolemic vs cardiogenic vs neurocardiogenic vs endocrine Now it is apparent the post-operative hypotension and tachycardia were due to post-op hemorrhage. s/p ex lap and evacuation of the blood clot by Dr. Gonzalez on 02/08 2D echocardiogram pending Serial troponin <0.01, <0.01 TSH with reflexive free T4 to rule out hyperthyroidism 1.38 Cortisol, random 3.9 and AM pending, to rule out hypoadrenalism (if values equivocal but still clinically suspected, will proceed with ACTH stimulation jeannette t) Lopressor IV PRN tachycardia HR>120bpm, hold if SBP<90 and/or DBP<50mmHg Clonazepam PRN anxiety/panic attack 2. Acute appendectomy s/p laparoscopic appendectomy, complicated by post-op hemorrhage: Now it is apparent the post-operative hypotension and tachycardia were due to post-op hemorrhage. s/p ex lap and evacuation of the blood clot by Dr. Gonzalez on 02/08 Full liquid diet Pain management as per primary team Daily cbc to trend H/H 3. Generalized anxiety disorder: Desvenlafaxine Nortriptyline Clonazepam PRN anxiety/panic attack Thank you for the consultation, please do not hesitate to call for further questions. Will continue to follow Time Spent With Patient Time: Total time spent is greater than 50% in coordination of care (as documented) at patient's floor/unit and/or counseling patient: Total time spent with greater than 50% in coordination of care (as documented) at patient's floor/unit and/or counseling patient:: Greater than 35 minutes
[2021-02-08 16:59] LABS: Basophils # (Auto) 0.01 K/mcL (0.00-0.30); Basophils % (Auto) 0.1 % (0.0-2.0); Eosinophils # (Auto) 0 K/mcL (0.00-0.70); Eosinophils % (Auto) 0 % (0.0-7.0); Hematocrit 28.1 % (34.1-44.9); Hemoglobin 9.4 g/dL (11.2-15.7); Lymphocytes % (Auto) 9.6 % (15.5-49.0); Mean Cell Volume 89.8 fL (80.0-100.0); Mean Corpuscular HGB Conc 33.5 g/dL (31.0-36.0); Mean Platelet Volume 11.5 fL (7.4-10.4); Monocytes # (Auto) 1.48 K/mcL (0.10-0.90); Monocytes % (Auto) 9.5 % (1.0-12.0); Neutrophils % (Auto) 80.8 % (38.0-78.0); Platelet Count 148 K/mcL (140-440); RBC 3.13 M/mcL (3.59-5.38); Red Cell Distribution Width 13.5 % (11.5-14.5); WBC 15.6 K/mcL (4.5-11.0)
[2021-02-08] MEDS ORDERED: traMADol 50 MG TABLET PO PRN (17:15)
[2021-02-08] MEDS ORDERED: clonazePAM 0.5 MG TABLET PO PRN (17:15)
[2021-02-08] MEDS: oxyCODONE HCL 5 MG TABLET PO PRN (17:25)
[2021-02-08] MEDS: DESVENLAFAXINE 50 MG PO SCH (19:59)
[2021-02-08] MEDS ORDERED: NORTRIPTYLINE 10 MG CAPSULE PO SCH (21:00)
[2021-02-09] MEDS: oxyCODONE HCL 5 MG TABLET PO PRN ×4 (00:20→16:01)
[2021-02-09 02:13] LABS: Basophils # (Auto) 0.02 K/mcL (0.00-0.30); Basophils % (Auto) 0.2 % (0.0-2.0); Eosinophils # (Auto) 0.01 K/mcL (0.00-0.70); Eosinophils % (Auto) 0.1 % (0.0-7.0); Hematocrit 28.6 % (34.1-44.9); Hemoglobin 9.3 g/dL (11.2-15.7); Lymphocytes % (Auto) 18.4 % (15.5-49.0); Mean Cell Volume 93.2 fL (80.0-100.0); Mean Corpuscular HGB Conc 32.5 g/dL (31.0-36.0); Mean Platelet Volume 12.1 fL (7.4-10.4); Neutrophils % (Auto) 73.3 % (38.0-78.0); Platelet Count 133 K/mcL (140-440); RBC 3.07 M/mcL (3.59-5.38); Red Cell Distribution Width 13.9 % (11.5-14.5); WBC 12.5 K/mcL (4.5-11.0)
[2021-02-09] MEDS: HYDROmorphone 0.5 MG/0.5 ML SYRINGE IV PRN ×2 (04:17→06:16)
[2021-02-09] MEDS: 0.9 % SODIUM CHLORIDE 10 ML SYRINGE IV SCH ×3 (05:24→21:32)
[2021-02-09] MEDS: PIPERACILLIN SODIUM/TAZOBACTAM 3.375 GM in DEXTROSE 5% IN WATER 50 ML IV SCH ×4 (06:10→17:20)
[2021-02-09 07:24] LABS: Basophils # (Auto) 0.02 K/mcL (0.00-0.30); Basophils % (Auto) 0.2 % (0.0-2.0); Eosinophils # (Auto) 0.02 K/mcL (0.00-0.70); Eosinophils % (Auto) 0.2 % (0.0-7.0); Hematocrit 28.3 % (34.1-44.9); Hemoglobin 9.2 g/dL (11.2-15.7); Lymphocytes # (Auto) 2.76 K/mcL (1.50-4.80); Lymphocytes % (Auto) 25.3 % (15.5-49.0); Mean Cell Volume 91.6 fL (80.0-100.0); Mean Corpuscular HGB Conc 32.5 g/dL (31.0-36.0); Mean Platelet Volume 11.5 fL (7.4-10.4); Monocytes # (Auto) 0.88 K/mcL (0.10-0.90); Monocytes % (Auto) 8.1 % (1.0-12.0); Neutrophils % (Auto) 66.2 % (38.0-78.0); Platelet Count 130 K/mcL (140-440); RBC 3.09 M/mcL (3.59-5.38); Red Cell Distribution Width 13.8 % (11.5-14.5); WBC 10.9 K/mcL (4.5-11.0)
[2021-02-09] MEDS: PANTOPRAZOLE 40 MG TABLET PO SCH (07:37)
[2021-02-09 07:44] LABS: INR 1.1 (0.9-1.1); Prothrombin Time 15.1 sec (11.9-14.5)
[2021-02-09] MEDS: LACTATED RINGERS 1,000 ML IV SCH (08:52)
--- NOTE | 2021-02-09 08:53 | XRay Report ---
CLINICAL INFORMATION: Shortness of breath COMPARISON: None. TECHNIQUE: PA and Lateral views FINDINGS: The heart size, mediastinum and pulmonary vessels are unremarkable. Minor left basilar airspace disease is either developing infiltrate or atelectasis.. There are no effusions. The bones and soft tissues are within normal limits. IMPRESSION: Minor infiltrate or atelectasis developing left base Interpreted and Authenticated by: Dom Barry 02/09/21
[2021-02-09] MEDS: OXYBUTYNIN CHLORIDE 5 MG TAB.XL.24H PO SCH (09:05)
[2021-02-09] MEDS: ONDANSETRON 4 MG/2 ML VIAL IV PRN (09:15)
[2021-02-09] MEDS ORDERED: METOCLOPRAMIDE 10 MG/2 ML VIAL IV PRN (09:26)
[2021-02-09] MEDS: METOCLOPRAMIDE 10 MG/2 ML VIAL IV SCH ×4 (09:59→21:31)
[2021-02-09] MEDS ORDERED: COSYNTROPIN 0.25 MG VIAL IV ONE (10:34)
--- NOTE | 2021-02-09 11:12 | EKG ---
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
[2021-02-09] MEDS: LORazepam 1 MG TABLET PO PRN ×2 (11:18→16:01)
--- NOTE | 2021-02-09 11:42 | Internal Med Progress Note ---
SUBJECTIVE Subjective Patient information: Note initiated : 02/09/21 at 11:36 am Service Date, if different from initiated Date: [] Patient: Lexus Koch a 40 y/o F admitted on 02/07/21 for abdominal pain. Chief Complaint: [] Interval history: History of present illness: Ms. Koch is a 40 year old F history of anxiety and irritable bowel syndrome, presented to the ED earlier today and was being diagnosed with appendicitis. Dr. Gonzalez performed an uncomplicated laparoscopic appendectomy with estimated blood loss of 5cc. She tolerated the procedure quite well. During her recovery in PACU, she developed sinus tachycardia with heart rate up from 110s bpm to 150s bpm, and also showing positive orthostatic hypotension. Patient denies any chest pain. She is c/o palpitation as well as anxiety about her overall condition and prognosis. She denies any shortness of breath. Currently denies any abdominal pain as well as any nausea or vomiting. She admitted to have episodes of diarrhea yesterday, and had been placed NPO today since presenting to the ED. ECG performed showing sinus tachycardia, no signs of acute ischemia otherwise. She is receiving her 1st L of fluid bolus. 02/08: Patient developed post-operative hemorrhage and hypotension. Dr. Gonzalez took her back to the OR at 0300 this morning and performed exploratory laparotomy with evacuation of clot, about 1250cc of blood and clot removed, with JORDAN drain placed. Patient currently c/o abdominal pain, diffused, mild to moderate. Denies chest pain or palpitation. Denies any SOB. Denies anxiety. Troponin <0.01, <0.01. Random cortisol 3.9, AM cortisol pending. TSH 1.38. 2D echocardiogram pending. 02/09: Repeat AM cortisol 0.3, low. Suspect adrenal insufficiency. Tachycardia with HR in the 110s bpm. Blood pressure within normal limits. Patient c/o moderate diffused abdominal pain. Also c/o anxiety. Denies any SOB. On 6L/min oxygen. Poor appetite. c/o lethargic. On GI soft diet. On Zosyn. CXR showing minor left lung base infiltrates vs atelectasis. Constitutional Vitals: Vital Signs Temp Pulse Resp BP Pulse Ox 37.1 C 113 H 10 L 134/68 94 02/09/21 08:00 02/09/21 10:15 02/09/21 09:00 02/09/21 10:15 02/09/21 10:15 Period Temp Pulse Resp BP Sys/Dalton Pulse Ox Last 24 Hr 37.0 C-37.6 C 75-120 9-23 80-134/51-82 88-100 Intake and Output 02/08/21 02/09/21 02/09/21 21:59 05:59 13:59 Intake Total 1979 1628 1979 Output Total 2004 1739 1125 Balance -25 -111 855 Weight 76.975 kg Intake & Output: Intake & Output 02/08/21 02/09/21 02/09/21 21:59 05:59 13:59 Intake Total 1979 1628 1979 Output Total 2004 1739 1125 Balance -25 -111 855 Weight 76.975 kg Intake: IV 1050 1029 1050 Lactated Ringers 1,000 ml @ 125 7927 849 2893 mls/hr IV .Q8H [facility] Rx#: [id number] Zosyn 3.375 gm In Dextrose 5% 50 50 50 in Water 50 ml @ 100 mls/hr IV Q6H [facility] Rx#:[id number] Oral 930 600 930 Output: Drainage 110 Right Lower Abdomen 110 Drainage 105 140 90 Right Lower Abdomen 105 140 90 Urine Catheter Amount 1900 1600 925 Other: Meal Breakfast Percent of Meal Consumed 25% Feeding Ability Assist with Tray Set Up Urine Appearance Clear Clear Uretheral ([place]) Clear Urine Color Straw Straw Uretheral ([place]) Straw Urine Odor Normal General appearance: cooperative, no acute distress and obese Head Head exam: Present atraumatic and normal inspection Eye Eye exam: Present normal appearance ENT ENT exam: Present mucous membranes moist, normal exam and normal external ear exam Additional comments: Nasal cannula in place Neck Neck exam: Present normal inspection Respiratory Respiratory exam: Present decreased breath sounds Cardiovascular Cardiovascular exam: Present tachycardia GI/Abdominal GI/Abdominal exam: Present diminished bowel sounds Additional comments: JORDAN drain with serosanguineous discharge Ventral abdominal surgical wound with surgical dressing Back Exam Back exam: Present normal inspection Neurological Exam Neurological exam: Present alert and oriented X3 Skin Skin exam: Present intact and warm OBJ DATA Labs CBC & Chem 7: 02/09/21 05:44 02/08/21 05:30 Labs: Abnormal Lab Results 02/09/21 02/09/21 02/09/21 08:28 05:44 05:44 WBC RBC 3.09 L Hgb 9.2 L Hct 28.3 L POC Hct Plt Count 130 L MPV 11.5 H Neut % (Auto) Lymph % (Auto) Lymph # (Auto) [place] # (Auto) Absolute Neutrophils PT POC Total CO2 POC BUN BUN Glucose POC Glucose POC WB Ioniz Calcium NT-Pro-B Natriuret Pep 927.7 H Cortisol AM Sample 0.3 L Urine Bacteria 02/09/21 02/08/21 02/08/21 05:44 23:13 16:30 WBC 12.5 H 15.6 H RBC 3.07 L 3.13 L Hgb 9.3 L 9.4 L Hct 28.6 L 28.1 L POC Hct Plt Count 133 L MPV 12.1 H 11.5 H Neut % (Auto) 80.8 H Lymph % (Auto) 9.6 L Lymph # (Auto) [place] # (Auto) 1.00 H 1.48 H Absolute Neutrophils 9.14 H 12.64 H PT 15.1 H POC Total CO2 POC BUN BUN Glucose POC Glucose POC WB Ioniz Calcium NT-Pro-B Natriuret Pep Cortisol AM Sample Urine Bacteria 02/08/21 02/08/21 02/08/21 08:20 05:31 05:30 WBC RBC Hgb Hct POC Hct Plt Count MPV Neut % (Auto) Lymph % (Auto) Lymph # (Auto) [place] # (Auto) Absolute Neutrophils PT 14.6 H POC Total CO2 POC BUN BUN 5 L Glucose 123 H POC Glucose POC WB Ioniz Calcium NT-Pro-B Natriuret Pep Cortisol AM Sample 0.5 L Urine Bacteria 02/08/21 02/08/21 02/07/21 05:30 01:55 21:11 WBC 16.4 H RBC 3.49 L Hgb 10.5 L Hct 31.0 L POC Hct 33 L Plt Count MPV 11.4 H Neut % (Auto) 88.0 H Lymph % (Auto) 5.7 L Lymph # (Auto) 0.93 L [place] # (Auto) 1.01 H Absolute Neutrophils 14.42 H PT POC Total CO2 18 L POC BUN 4 L 4 L BUN Glucose POC Glucose 141 H 197 H POC WB Ioniz Calcium 1.08 L NT-Pro-B Natriuret Pep Cortisol AM Sample Urine Bacteria 02/07/21 02/07/2121 11:37 11:37 11:12 WBC 13.1 H RBC Hgb Hct POC Hct Plt Count MPV 11.0 H Neut % (Auto) Lymph % (Auto) 14.4 L Lymph # (Auto) [place] # (Auto) Absolute Neutrophils 10.17 H PT POC Total CO2 POC BUN 3 L BUN Glucose POC Glucose POC WB Ioniz Calcium NT-Pro-B Natriuret Pep Cortisol AM Sample Urine Bacteria Few A Meds: Medications Albuterol Sulfate (Albuterol Sulfate 200 Puff Inhaler) 1 puff INH QIDP PRN PRN Reason: Wheezing Clonazepam (Clonazepam 0.5 Mg Tablet) 0.5 mg PO HSP PRN PRN Reason: severe anxiety Hydromorphone HCl (Hydromorphone 0.5 Mg/0.5 Ml Syringe) 1 mg IV Q2HP PRN; Protocol PRN Reason: Per Pain Protocol Last Admin: 02/09/21 06:16 Dose: 1 mg Documented by: Lactated Ringer's (Lactated Ringers) 1,000 mls @ 125 mls/hr IV .Q8H [facility] [place] Last Admin: 02/09/21 08:52 Dose: 125 mls/hr Documented by: Piperacillin Sod/Tazobactam (Sod 3.375 gm/ Dextrose) 50 mls @ 100 mls/hr IV Q6H [facility] [place]; Protocol Last Infusion: 02/09/21 06:40 Dose: Infused Documented by: Lorazepam (Lorazepam 1 Mg Tablet) 1 mg PO Q6HP PRN PRN Reason: ANXIETY/SEDATION Last Admin: 02/09/21 11:18 Dose: 1 mg Documented by: Metoclopramide HCl (Metoclopramide 10 Mg/2 Ml Vial) 10 mg IV Q6H [facility] Last Admin: 02/09/21 09:59 Dose: 10 mg Documented by: Nortriptyline HCl (Nortriptyline 10 Mg Capsule) 10 mg PO QHS [facility] Last Admin: 02/08/21 19:58 Dose: 10 mg Documented by: Ondansetron HCl (Ondansetron 4 Mg/2 Ml Vial) 4 mg IV Q6HP PRN PRN Reason: Nausea And Vomiting Last Admin: 02/09/21 09:15 Dose: 4 mg Documented by: Ondansetron HCl (Ondansetron 4 Mg Odt Tablet) 4 mg SL Q6HP PRN PRN Reason: Nausea And Vomiting Oxybutynin Chloride (Oxybutynin Chloride 5 Mg Tab.Xl.24h) 10 mg PO QDAY [facility] [place] Last Admin: 02/09/21 09:05 Dose: 10 mg Documented by: Oxycodone HCl (Oxycodone Hcl 5 Mg Tablet) 10 mg PO Q4HP PRN; Protocol PRN Reason: Per Pain Protocol Last Admin: 02/09/21 09:59 Dose: 10 mg Documented by: Pantoprazole Sodium (Pantoprazole 40 Mg Tablet) 40 mg PO QAMAC [facility] [place] Last Admin: 02/09/21 07:37 Dose: 40 mg Documented by: Desvenlafaxine 50 Mg Tablet Extended Release 24 Hr 1 dose PO QHS [facility] [place] Last Admin: 02/08/21 19:59 Dose: Not Given Documented by: Sodium Chloride (0.9 % Sodium Chloride 10 Ml Syringe) 10 ml IV Q8 [facility] [place] Last Admin: 02/09/21 05:24 Dose: 10 ml Documented by: Tramadol HCl (Tramadol 50 Mg Tablet) 50 mg PO BIDP PRN; Protocol PRN Reason: pain A/P Assessment and plan (1) Acute appendicitis: Status: Acute Qualifiers: Acute appendicitis type: unspecified acute appendicitis type Qualified Code(s): K35.80 - Unspecified acute appendicitis (2) Generalized anxiety disorder: Status: Acute (3) Tachycardia: Status: Acute (4) Hemorrhage postprocedure: Status: Acute (5) Adrenal insufficiency: Status: Acute Narrative A/P Narrative: Assessment and Plans: 1. Sinus tachycardia, post-surgically: DDx: hypovolemic vs cardiogenic vs neurocardiogenic vs endocrine Now it is apparent the post-operative hypotension and tachycardia were due to post-op hemorrhage. s/p ex lap and evacuation of the blood clot by Dr. Gonzalez on 02/08 2D echocardiogram normal systolic and diastolic functions with LVEF 60-65% Serial troponin <0.01, <0.01, <0.01 TSH with reflexive free T4 to rule out hyperthyroidism 1.38 AM cortisol 0.5 and repeat 0.3, suspect adrenal insufficiency-->ACTH stimulation test Lopressor IV PRN tachycardia HR>120bpm, hold if SBP<90 and/or DBP<50mmHg Clonazepam PRN anxiety/panic attack 2. Acute appendectomy s/p laparoscopic appendectomy, complicated by post-op hemorrhage: Now it is apparent the post-operative hypotension and tachycardia were due to post-op hemorrhage. s/p ex lap and evacuation of the blood clot by Dr. Gonzalez on 02/08 Full liquid diet Pain management as per primary team Daily cbc to trend H/H 3. Generalized anxiety disorder: Desvenlafaxine Nortriptyline Clonazepam PRN anxiety/panic attack 4. Post-surgical ateletasis vs infiltrate of the left lung base: Supplemental oxygen therapy Incentive spirometry Pain management as per primary team Zosyn cbc w/ auto diff in the morning to trend WBC Thank you for the consultation, please do not hesitate to call for further questions. Will continue to follow Time Spent With Patient Time: Total time spent is greater than 50% in coordination of care (as documented) at patient's floor/unit and/or counseling patient: Total time spent with greater than 50% in coordination of care (as documented) at patient's floor/unit and/or counseling patient:: Greater than 35 minutes
--- NOTE | 2021-02-09 12:41 | Surgical Pathology Report ---
Histology Microscopic Diagnosis Specimen A- APPENDIX, APPENDECTOMY: --- ACUTE APPENDICITIS. (EBD) Clinical History Acute appendicitis. Gross Description Received in formalin labeled appendix, is a 9.1 cm in length by up to 1.3 cm in diameter vidal-sánchez appendix with up to 2.5 cm of attached yellow-sánchez adipose tissue. The proximal margin is closed with a staple line. The specimen has a fecalith running down the entirety of the specimen. Vessel Captain portions are submitted in one cassette with the most proximal margin inked black. ([facility]:dustin) Electronically Signed Donna Banks MD, FCAP Electronically Signed 02/09/2021 12:40
[2021-02-09] MEDS ORDERED: FUROSEMIDE 40 MG/4 ML VIAL IV ONE (12:57)
[2021-02-09] MEDS ORDERED: CALCIUM CARBONATE 500 MG TAB.CHEW CHEWED PRN (12:58)
--- NOTE | 2021-02-09 13:03 | General Surgery Progress Note ---
SUBJECTIVE Subjective Patient information: Note initiated : 02/09/21 at 12:48 pm Service Date, if different from initiated Date: [] Patient: Lexus Koch 40 y/o F admitted on 02/07/21 for abdominal pain. Chief Complaint: [] Principal diagnosis: Acute appendicitis; postoperative hemorrhage Interval history: Patient continues to do well. She has been stable all night. The volume of drainage in her Jose drain has increased but the fluid is totally serous without any evidence of bleeding. Hemoglobin is measured at 9.2 but this is probably due to hemodilution return of third space volume. Her urine output is increasing appears to be extremely dilute. She denies any shortness of breath. She has not developed any increased ecchymosis of her abdominal incision or port sites. proBNP 927, PT 15.1, INR 1.1, white blood count 10.9, hemoglobin 9.2, platelets 130,000. Chest x-ray shows mild atelectasis left base without effusion. Her serum cortisol a.m. level is 0.3 which is extremely low. An ACTH stimulation test has been done. Pertinent ROS: Stable except for continued anxiety which is a long-term problem Constitutional Vitals: Vital Signs Temp Pulse Resp BP Pulse Ox 98.7 F 86 10 L 127/77 97 02/09/21 12:01 02/09/21 12:13 02/09/21 09:00 02/09/21 12:13 02/09/21 12:13 Period Temp Pulse Resp BP Sys/Dalton Pulse Ox Last 24 Hr 98.6 F-99.2 F 75-129 9-23 80-134/51-86 88-100 Intake and Output 02/08/21 02/09/21 02/09/21 21:59 05:59 13:59 Intake Total 1979 1628 1979 Output Total 2004 1739 1215 Balance -25 -111 765 Weight 169 lb 11.2 oz Intake & Output: Intake & Output 02/08/21 02/09/21 02/09/21 21:59 05:59 13:59 Intake Total 1979 1628 1979 Output Total 2004 1739 1215 Balance -25 -111 765 Weight 169 lb 11.2 oz Intake: IV 1050 1029 1050 Lactated Ringers 1,000 ml @ 125 1967 397 9377 mls/hr IV .Q8H [facility] Rx#: [id number] Zosyn 3.375 gm In Dextrose 5% 50 50 50 in Water 50 ml @ 100 mls/hr IV Q6H [facility] Rx#:[id number] Oral 930 600 930 Output: Drainage 200 Right Lower Abdomen 200 Drainage 105 140 90 Right Lower Abdomen 105 140 90 Urine Catheter Amount 1900 1600 925 Other: Meal Breakfast Percent of Meal Consumed 25% Feeding Ability Assist with Tray Set Up Urine Appearance Clear Clear Uretheral ([place]) Clear Urine Color Straw Straw Uretheral ([place]) Straw Urine Odor Normal Eye Eye exam: Present EOMI Pupils: Present normal accommodation and PERRL ENT ENT exam: Present mucous membranes moist and normal oropharynx Neck Neck exam: Present full ROM and normal inspection; Absent lymphadenopathy Additional comments: No JVD Respiratory Respiratory exam: Present normal respiratory exam and CTAB; Absent rales, rhonchi or wheezes Cardiovascular Cardiovascular exam: Present RRR, +S1, +S2 and tachycardia; Absent JVD GI/Abdominal GI/Abdominal exam: Present normal bowel sounds, soft and distended (Mild distention); Absent guarding Additional comments: Jose drain with serous drainage Extremities Exam Extremities exam: Present full ROM, normal inspection and neurovascular intact; Absent pedal edema or tenderness Neurological Exam Neurological exam: Present alert and oriented X3; Absent motor sensory deficit Psychiatric Psychiatric exam: Present anxious Skin Skin exam: Present intact A/P Assessment and plan (1) Acute appendicitis: Status: Acute Qualifiers: Acute appendicitis type: unspecified acute appendicitis type Qualified Code(s): K35.80 - Unspecified acute appendicitis (2) Hemorrhage postprocedure: Status: Acute (3) PTSD (post-traumatic stress disorder): Status: Chronic (4) Generalized anxiety disorder: Status: Acute (5) Adrenal insufficiency: Status: Acute Narrative A/P Narrative: Patient is doing well and is demonstrating no evidence of bleeding Lasix 40mg IV TO offload third space volume return transfer to [facility] Time Spent With Patient Time: Total time spent is greater than 50% in coordination of care (as documented) at patient's floor/unit and/or counseling patient:
[2021-02-09] MEDS ORDERED: NORTRIPTYLINE 10 MG CAPSULE PO STA (15:51)
[2021-02-09] MEDS: NORTRIPTYLINE 25 MG CAPSULE PO SCH (21:31)
[2021-02-09] MEDS: DESVENLAFAXINE 50 MG PO SCH (21:32)
[2021-02-10] MEDS: PIPERACILLIN SODIUM/TAZOBACTAM 3.375 GM in DEXTROSE 5% IN WATER 50 ML IV SCH ×5 (00:02→23:54)
[2021-02-10] MEDS: METOCLOPRAMIDE 10 MG/2 ML VIAL IV SCH ×4 (03:34→21:31)
[2021-02-10] MEDS: 0.9 % SODIUM CHLORIDE 10 ML SYRINGE IV SCH ×3 (05:53→21:31)
[2021-02-10] MEDS: LORazepam 1 MG TABLET PO PRN ×2 (06:28→16:09)
[2021-02-10 08:03] LABS: Basophils # (Auto) 0.03 K/mcL (0.00-0.30); Basophils % (Auto) 0.3 % (0.0-2.0); Eosinophils # (Auto) 0.14 K/mcL (0.00-0.70); Eosinophils % (Auto) 1.2 % (0.0-7.0); Hematocrit 34.4 % (34.1-44.9); Hemoglobin 11.3 g/dL (11.2-15.7); Lymphocytes # (Auto) 1.88 K/mcL (1.50-4.80); Lymphocytes % (Auto) 16.4 % (15.5-49.0); Mean Cell Volume 90.1 fL (80.0-100.0); Mean Corpuscular HGB Conc 32.8 g/dL (31.0-36.0); Mean Platelet Volume 11.4 fL (7.4-10.4); Monocytes # (Auto) 1.11 K/mcL (0.10-0.90); Monocytes % (Auto) 9.7 % (1.0-12.0); Neutrophils % (Auto) 72.4 % (38.0-78.0); Platelet Count 158 K/mcL (140-440); RBC 3.82 M/mcL (3.59-5.38); Red Cell Distribution Width 13.2 % (11.5-14.5); WBC 11.5 K/mcL (4.5-11.0)
[2021-02-10 08:13] LABS: ALT/SGPT 14 U/L (<40); AST/SGOT 20 U/L (<32); Albumin 3.2 gm/dL (3.2-5.2); Albumin/Globulin Ratio 1.1 (1.0-2.3); Alkaline Phosphatase 44 U/L (39-117); Bilirubin,Direct < 0.2 mg/dL (0-0.3); Bilirubin,Total 0.5 mg/dL (0.1-1.0); Blood Urea Nitrogen 4 mg/dL (6-20); Calcium 8.7 mg/dL (8.6-10.4); Carbon Dioxide 25 mmol/L (22-30); Chloride 100 mmol/L (96-108); Globulin 2.9 gm/dL (2.2-3.7); Glomerular Filtration Rate 93; Glucose 113 mg/dL (70-105); Lactate Dehydrogenase 201 U/L (135-225); Phosphorous 3.3 mg/dL (2.5-4.5); Triglycerides 151 mg/dL (<150); Uric Acid 2.8 mg/dL (2.5-8.0)
[2021-02-10] MEDS ORDERED: METOPROLOL TARTRATE 5 MG/5 ML VIAL IV PRN ×2 (09:39→14:07)
[2021-02-10] MEDS: OXYBUTYNIN CHLORIDE 5 MG TAB.XL.24H PO SCH (09:53)
[2021-02-10] MEDS: PANTOPRAZOLE 40 MG TABLET PO SCH (09:54)
[2021-02-10] MEDS: clonazePAM 0.5 MG TABLET PO PRN ×2 (09:57→21:31)
--- NOTE | 2021-02-10 10:20 | General Surgery Progress Note ---
SUBJECTIVE Subjective Patient information: Note initiated : 02/10/21 at 10:18 am Service Date, if different from initiated Date: [] Patient: Lexus Koch 40 y/o F admitted on 02/07/21 for abdominal pain. Chief Complaint: [] Principal diagnosis: Acute appendicitis; postoperative hemorrhage Interval history: Patient feels better overnight, H&H is stabilized, heart rate has decreased and blood pressure has stayed stable. Patient feels better, she wants to leave the hospital. She has not had a bowel movement, has not had return of bowel function, has not tolerated regular diet. Constitutional Vitals: Vital Signs Temp Pulse Resp BP Pulse Ox 97 F 116 H 15 119/73 94 02/10/21 07:20 02/10/21 07:20 02/10/21 07:20 02/10/21 07:20 02/10/21 07:20 Period Temp Pulse Resp BP Sys/Dalton Pulse Ox Last 24 Hr 97 F-98.9 F 86-147 15-18 110-127/68-86 92-99 Intake and Output 02/09/21 02/10/21 02/10/21 21:59 05:59 13:59 Intake Total 850 750 50 Output Total 2635 600 360 Balance -1785 150 -310 Weight 173 lb 4.8 oz Intake & Output: Intake & Output 02/09/21 02/10/21 02/10/21 21:59 05:59 13:59 Intake Total 850 750 50 Output Total 2635 600 360 Balance -1785 150 -310 Weight 173 lb 4.8 oz Intake: IV 50 50 50 Zosyn 3.375 gm In Dextrose 5% 50 50 50 in Water 50 ml @ 100 mls/hr IV Q6H [facility] Rx#:[id number] Oral 800 700 Output: Drainage 100 Right Lower Abdomen 100 Drainage 60 50 360 Right Lower Abdomen 60 50 360 Urine Catheter Amount 0371 550 Other: Urine Appearance Clear Urine Color Bright Yellow Urine Odor Normal General appearance: cooperative and no acute distress Head Head exam: Present normal inspection Respiratory Respiratory exam: Present normal respiratory exam Cardiovascular Cardiovascular exam: Present tachycardia GI/Abdominal GI/Abdominal exam: Present soft, distended (Mildly distended) and tenderness (Appropriately tender to palpation); Absent firm or guarding Additional comments: JORDAN drain with serous output A/P Narrative A/P Narrative: Status post laparoscopic appendectomy with postoperative bleed with exploratory laparotomy. Hematocrit is now stable, vital signs have stabilized. Patient appears to be diuresing. No return of bowel function as of yet. Plan: DC [place]. Ambulate minimum 3 times daily. Follow H&H. Time Spent With Patient Time: Total time spent is greater than 50% in coordination of care (as documented) at patient's floor/unit and/or counseling patient:
--- NOTE | 2021-02-10 10:49 | Internal Med Progress Note ---
SUBJECTIVE Subjective Patient information: Note initiated : 02/10/21 at 10:47 am Service Date, if different from initiated Date: [] Patient: Lexus Koch a 40 y/o F admitted on 02/07/21 for abdominal pain. Chief Complaint: [] Principal diagnosis: Acute appendicitis; postoperative hemorrhage Interval history: History of present illness: Ms. Koch is a 40 year old F history of anxiety and irritable bowel syndrome, presented to the ED earlier today and was being diagnosed with appendicitis. Dr. Gonzalez performed an uncomplicated laparoscopic appendectomy with estimated blood loss of 5cc. She tolerated the procedure quite well. During her recovery in PACU, she developed sinus tachycardia with heart rate up from 110s bpm to 150s bpm, and also showing positive orthostatic hypotension. Patient denies any chest pain. She is c/o palpitation as well as anxiety about her overall condition and prognosis. She denies any shortness of breath. Currently denies any abdominal pain as well as any nausea or vomiting. She admitted to have episodes of diarrhea yesterday, and had been placed NPO today since presenting to the ED. ECG performed showing sinus tachycardia, no signs of acute ischemia otherwise. She is receiving her 1st L of fluid bolus. 02/08: Patient developed post-operative hemorrhage and hypotension. Dr. Gonzalez took her back to the OR at 0300 this morning and performed exploratory laparotomy with evacuation of clot, about 1250cc of blood and clot removed, with JORDAN drain placed. Patient currently c/o abdominal pain, diffused, mild to moderate. Denies chest pain or palpitation. Denies any SOB. Denies anxiety. Troponin <0.01, <0.01. Random cortisol 3.9, AM cortisol pending. TSH 1.38. 2D echocardiogram pending. 02/09: Repeat AM cortisol 0.3, low. Suspect adrenal insufficiency. Tachycardia with HR in the 110s bpm. Blood pressure within normal limits. Patient c/o moderate diffused abdominal pain. Also c/o anxiety. Denies any SOB. On 6L/min oxygen. Poor appetite. c/o lethargic. On GI soft diet. On Zosyn. CXR showing minor left lung base infiltrates vs atelectasis. 02/10: Tachycardia with HR in the 110s bpm. Tolerating GI soft diet. Has not passed any gas or stool. Denies any abdominal pain. Denies any chest pain or palpitation. Denies any SOB. Denies any anxiety. Constitutional Vitals: Vital Signs Temp Pulse Resp BP Pulse Ox 36.1 C 116 H 15 119/73 94 02/10/21 07:20 02/10/21 07:20 02/10/21 07:20 02/10/21 07:20 02/10/21 07:20 Period Temp Pulse Resp BP Sys/Dalton Pulse Ox Last 24 Hr 36.1 C-37.2 C 86-147 15-18 110-127/68-86 92-99 Intake and Output 02/09/21 02/10/21 02/10/21 21:59 05:59 13:59 Intake Total 850 750 50 Output Total 2635 600 360 Balance -1785 150 -310 Weight 78.608 kg Intake & Output: Intake & Output 02/09/21 02/10/21 02/10/21 21:59 05:59 13:59 Intake Total 850 750 50 Output Total 2635 600 360 Balance -1785 150 -310 Weight 78.608 kg Intake: IV 50 50 50 Zosyn 3.375 gm In Dextrose 5% 50 50 50 in Water 50 ml @ 100 mls/hr IV Q6H [facility] Rx#:[id number] Oral 800 700 Output: Drainage 100 Right Lower Abdomen 100 Drainage 60 50 360 Right Lower Abdomen 60 50 360 Urine Catheter Amount [id number] 550 Other: Urine Appearance Clear Urine Color Bright Yellow Urine Odor Normal General appearance: average body habitus, cooperative and no acute distress Head Head exam: Present atraumatic and normal inspection Eye Eye exam: Present normal appearance ENT ENT exam: Present mucous membranes moist, normal exam and normal external ear exam Neck Neck exam: Present normal inspection Respiratory Respiratory exam: Present normal respiratory exam Cardiovascular Cardiovascular exam: Present normal rate and rhythm GI/Abdominal GI/Abdominal exam: Present normal bowel sounds Additional comments: Abdominal binder in place JORDAN drain in place with serosanguineous discharge Additional comments: De Leon catheter in place Back Exam Back exam: Present normal inspection Neurological Exam Neurological exam: Present alert and oriented X3 Skin Skin exam: Present intact and warm OBJ DATA Labs CBC & Chem 7: 02/10/21 06:28 02/10/21 06:28 Labs: Abnormal Lab Results 02/10/21 02/10/21 02/09/21 06:28 06:28 08:28 WBC 11.5 H RBC Hgb Hct POC Hct Plt Count MPV 11.4 H Neut % (Auto) Lymph % (Auto) Lymph # (Auto) [place] # (Auto) 1.11 H Absolute Neutrophils 8.29 H PT POC Total CO2 POC BUN BUN 4 L Glucose 113 H POC Glucose POC WB Ioniz Calcium GGT 37 H NT-Pro-B Natriuret Pep 927.7 H Triglycerides 151 H Cortisol AM Sample Urine Bacteria 02/09/21 02/09/21 02/09/21 05:44 05:44 05:44 WBC RBC 3.09 L Hgb 9.2 L Hct 28.3 L POC Hct Plt Count 130 L MPV 11.5 H Neut % (Auto) Lymph % (Auto) Lymph # (Auto) [place] # (Auto) Absolute Neutrophils PT 15.1 H POC Total CO2 POC BUN BUN Glucose POC Glucose POC WB Ioniz Calcium GGT NT-Pro-B Natriuret Pep Triglycerides Cortisol AM Sample 0.3 L Urine Bacteria 02/08/21 02/08/21 02/08/21 23:13 16:30 08:20 WBC 12.5 H 15.6 H RBC 3.07 L 3.13 L Hgb 9.3 L 9.4 L Hct 28.6 L 28.1 L POC Hct Plt Count 133 L MPV 12.1 H 11.5 H Neut % (Auto) 80.8 H Lymph % (Auto) 9.6 L Lymph # (Auto) [place] # (Auto) 1.00 H 1.48 H Absolute Neutrophils 9.14 H 12.64 H PT 14.6 H POC Total CO2 POC BUN BUN Glucose POC Glucose POC WB Ioniz Calcium GGT NT-Pro-B Natriuret Pep Triglycerides Cortisol AM Sample Urine Bacteria 02/08/21 02/08/21 02/08/21 05:31 05:30 05:30 WBC 16.4 H RBC 3.49 L Hgb 10.5 L Hct 31.0 L POC Hct Plt Count MPV 11.4 H Neut % (Auto) 88.0 H Lymph % (Auto) 5.7 L Lymph # (Auto) 0.93 L [place] # (Auto) 1.01 H Absolute Neutrophils 14.42 H PT POC Total CO2 POC BUN BUN 5 L Glucose 123 H POC Glucose POC WB Ioniz Calcium GGT NT-Pro-B Natriuret Pep Triglycerides Cortisol AM Sample 0.5 L Urine Bacteria 02/08/21 02/07/21 02/07/21 01:55 21:11 11:37 WBC RBC Hgb Hct POC Hct 33 L Plt Count MPV Neut % (Auto) Lymph % (Auto) Lymph # (Auto) [place] # (Auto) Absolute Neutrophils PT POC Total CO2 18 L POC BUN 4 L 4 L 3 L BUN Glucose POC Glucose 141 H 197 H POC WB Ioniz Calcium 1.08 L GGT NT-Pro-B Natriuret Pep Triglycerides Cortisol AM Sample Urine Bacteria 02/07/21 02/07/21 11:37 11:12 WBC 13.1 H RBC Hgb Hct POC Hct Plt Count MPV 11.0 H Neut % (Auto) Lymph % (Auto) 14.4 L Lymph # (Auto) [place] # (Auto) Absolute Neutrophils 10.17 H PT POC Total CO2 POC BUN BUN Glucose POC Glucose POC WB Ioniz Calcium GGT NT-Pro-B Natriuret Pep Triglycerides Cortisol AM Sample Urine Bacteria Few A Meds: Medications Albuterol Sulfate (Albuterol Sulfate 200 Puff Inhaler) 1 puff INH QIDP PRN PRN Reason: Wheezing Calcium Carbonate/Glycine (Calcium Carbonate 500 Mg Tab.Chew) 1,000 mg CHEWED Q4HP PRN PRN Reason: Dyspepsia Clonazepam (Clonazepam 0.5 Mg Tablet) 0.5 mg PO Q6 PRN PRN Reason: severe anxiety Last Admin: 02/10/21 09:57 Dose: 0.5 mg Documented by: Hydromorphone HCl (Hydromorphone 0.5 Mg/0.5 Ml Syringe) 1 mg IV Q2HP PRN; Protocol PRN Reason: Per Pain Protocol Last Admin: 02/09/21 06:16 Dose: 1 mg Documented by: Piperacillin Sod/Tazobactam (Sod 3.375 gm/ Dextrose) 50 mls @ 100 mls/hr IV Q6H [facility]; Protocol Last Infusion: 02/10/21 06:59 Dose: Infused Documented by: Lorazepam (Lorazepam 1 Mg Tablet) 1 mg PO Q4HP PRN PRN Reason: ANXIETY/SEDATION Last Admin: 02/10/21 06:28 Dose: 1 mg Documented by: Metoclopramide HCl (Metoclopramide 10 Mg/2 Ml Vial) 10 mg IV Q6H [facility] Last Admin: 02/10/21 09:56 Dose: 10 mg Documented by: Nortriptyline HCl (Nortriptyline 25 Mg Capsule) 25 mg PO HS [facility] Last Admin: 02/09/21 21:31 Dose: 25 mg Documented by: Ondansetron HCl (Ondansetron 4 Mg/2 Ml Vial) 4 mg IV Q6HP PRN PRN Reason: Nausea And Vomiting Last Admin: 02/09/21 09:15 Dose: 4 mg Documented by: Ondansetron HCl (Ondansetron 4 Mg Odt Tablet) 4 mg SL Q6HP PRN PRN Reason: Nausea And Vomiting Oxybutynin Chloride (Oxybutynin Chloride 5 Mg Tab.Xl.24h) 10 mg PO QDAY [facility] Last Admin: 02/10/21 09:53 Dose: 10 mg Documented by: Oxycodone HCl (Oxycodone Hcl 5 Mg Tablet) 10 mg PO Q4HP PRN; Protocol PRN Reason: Per Pain Protocol Last Admin: 02/09/21 16:01 Dose: 10 mg Documented by: Pantoprazole Sodium (Pantoprazole 40 Mg Tablet) 40 mg PO QAMAC [facility] Last Admin: 02/10/21 09:54 Dose: 40 mg Documented by: Desvenlafaxine 50 Mg Tablet Extended Release 24 Hr 1 dose PO QHS [facility] Last Admin: 02/09/21 21:32 Dose: Not Given Documented by: Sodium Chloride (0.9 % Sodium Chloride 10 Ml Syringe) 10 ml IV Q8 [facility] Last Admin: 02/10/21 05:53 Dose: 10 ml Documented by: Tramadol HCl (Tramadol 50 Mg Tablet) 50 mg PO BIDP PRN; Protocol PRN Reason: pain A/P Assessment and plan (1) Acute appendicitis: Status: Acute Qualifiers: Acute appendicitis type: unspecified acute appendicitis type Qualified Code(s): K35.80 - Unspecified acute appendicitis (2) Generalized anxiety disorder: Status: Acute (3) Tachycardia: Status: Acute (4) Hemorrhage postprocedure: Status: Acute (5) Adrenal insufficiency: Status: Acute Narrative A/P Narrative: Assessment and Plans: 1. Sinus tachycardia, post-surgically: DDx: hypovolemic vs cardiogenic vs neurocardiogenic vs endocrine Now it is apparent the post-operative hypotension and tachycardia were due to post-op hemorrhage. s/p ex lap and evacuation of the blood clot by Dr. Gonzalez on 02/08 2D echocardiogram normal systolic and diastolic functions with LVEF 60-65% Serial troponin <0.01, <0.01, <0.01 TSH with reflexive free T4 to rule out hyperthyroidism 1.38 AM cortisol 0.5 and repeat 0.3, suspect adrenal insufficiency-->ACTH stimulation test, results pending Lopressor IV PRN tachycardia HR>120bpm, hold if SBP<90 and/or DBP<50mmHg Clonazepam PRN anxiety/panic attack 2. Acute appendectomy s/p laparoscopic appendectomy, complicated by post-op hemorrhage: Now it is apparent the post-operative hypotension and tachycardia were due to post-op hemorrhage. s/p ex lap and evacuation of the blood clot by Dr. Gonzalez on 02/08 GI soft diet Pain management as per primary team Daily cbc to trend H/H 3. Generalized anxiety disorder: Desvenlafaxine Nortriptyline Clonazepam PRN anxiety/panic attack 4. Post-surgical atelectasis vs infiltrate of the left lung base: Supplemental oxygen therapy Incentive spirometry Pain management as per primary team Zosyn cbc w/ auto diff in the morning to trend WBC Thank you for the consultation, please do not hesitate to call for further questions. Will continue to follow Time Spent With Patient Time: Total time spent is greater than 50% in coordination of care (as documented) at patient's floor/unit and/or counseling patient: Total time spent with greater than 50% in coordination of care (as documented) at patient's floor/unit and/or counseling patient:: Greater than 35 minutes
--- NOTE | 2021-02-10 13:59 | Internal Med Progress Note ---
SUBJECTIVE Subjective Patient information: Note initiated : 02/10/21 at 1:54 pm Service Date, if different from initiated Date: [] Patient: Lexus Koch a 40 y/o F admitted on 02/07/21 for abdominal pain. Chief Complaint: [] Principal diagnosis: Acute appendicitis; postoperative hemorrhage Interval history: History of present illness: Ms. Koch is a 40 year old F history of anxiety and irritable bowel syndrome, presented to the ED earlier today and was being diagnosed with appendicitis. Dr. Gonzalez performed an uncomplicated laparoscopic appendectomy with estimated blood loss of 5cc. She tolerated the procedure quite well. During her recovery in PACU, she developed sinus tachycardia with heart rate up from 110s bpm to 150s bpm, and also showing positive orthostatic hypotension. Patient denies any chest pain. She is c/o palpitation as well as anxiety about her overall condition and prognosis. She denies any shortness of breath. Currently denies any abdominal pain as well as any nausea or vomiting. She admitted to have episodes of diarrhea yesterday, and had been placed NPO today since presenting to the ED. ECG performed showing sinus tachycardia, no signs of acute ischemia otherwise. She is receiving her 1st L of fluid bolus. 02/08: Patient developed post-operative hemorrhage and hypotension. Dr. Gonzalez took her back to the OR at 0300 this morning and performed exploratory laparotomy with evacuation of clot, about 1250cc of blood and clot removed, with JORDAN drain placed. Patient currently c/o abdominal pain, diffused, mild to moderate. Denies chest pain or palpitation. Denies any SOB. Denies anxiety. Troponin <0.01, <0.01. Random cortisol 3.9, AM cortisol pending. TSH 1.38. 2D echocardiogram pending. 02/09: Repeat AM cortisol 0.3, low. Suspect adrenal insufficiency. Tachycardia with HR in the 110s bpm. Blood pressure within normal limits. Patient c/o moderate diffused abdominal pain. Also c/o anxiety. Denies any SOB. On 6L/min oxygen. Poor appetite. c/o lethargic. On GI soft diet. On Zosyn. CXR showing minor left lung base infiltrates vs atelectasis. 02/10: Tachycardia with HR in the 110s bpm. Tolerating GI soft diet. Has not passed any gas or stool. Denies any abdominal pain. Denies any chest pain or palpitation. Denies any SOB. Denies any anxiety. Constitutional Vitals: Vital Signs Temp Pulse Resp BP Pulse Ox 98.2 F 112 H 18 135/65 95 02/10/21 12:00 02/10/21 12:00 02/10/21 12:00 02/10/21 12:00 02/10/21 12:00 Period Temp Pulse Resp BP Sys/Dalton Pulse Ox Last 24 Hr 97 F-98.9 F 105-147 15-18 114-135/65-86 92-96 Intake and Output 02/09/21 02/10/21 02/10/21 21:59 05:59 13:59 Intake Total 850 750 100 Output Total 2635 600 360 Balance -1785 150 -260 Weight 78.608 kg Intake & Output: Intake & Output 02/09/21 02/10/21 02/10/21 21:59 05:59 13:59 Intake Total 850 750 100 Output Total 2635 600 360 Balance -1785 150 -260 Weight 78.608 kg Intake: IV 50 50 100 Zosyn 3.375 gm In Dextrose 5% 50 50 100 in Water 50 ml @ 100 mls/hr IV Q6H [facility] Rx#:[id number] Oral 800 700 Output: Drainage 100 Right Lower Abdomen 100 Drainage 60 50 360 Right Lower Abdomen 60 50 360 Urine Catheter Amount 2475 550 Other: Urine Appearance Clear Urine Color Bright Yellow Urine Odor Normal # Voids 1 OBJ DATA Labs CBC & Chem 7: 02/10/21 06:28 02/10/21 06:28 Labs: Abnormal Lab Results 02/10/21 02/10/21 02/09/21 06:28 06:28 08:28 WBC 11.5 H RBC Hgb Hct POC Hct Plt Count MPV 11.4 H Neut % (Auto) Lymph % (Auto) Lymph # (Auto) [place] # (Auto) 1.11 H Absolute Neutrophils 8.29 H PT POC Total CO2 POC BUN BUN 4 L Glucose 113 H POC Glucose POC WB Ioniz Calcium GGT 37 H NT-Pro-B Natriuret Pep 927.7 H Triglycerides 151 H Cortisol AM Sample 02/09/21 02/09/21 02/09/21 05:44 05:44 05:44 WBC RBC 3.09 L Hgb 9.2 L Hct 28.3 L POC Hct Plt Count 130 L MPV 11.5 H Neut % (Auto) Lymph % (Auto) Lymph # (Auto) [place] # (Auto) Absolute Neutrophils PT 15.1 H POC Total CO2 POC BUN BUN Glucose POC Glucose POC WB Ioniz Calcium GGT NT-Pro-B Natriuret Pep Triglycerides Cortisol AM Sample 0.3 L 02/08/21 02/08/21 02/08/21 23:13 16:30 08:20 WBC 12.5 H 15.6 H RBC 3.07 L 3.13 L Hgb 9.3 L 9.4 L Hct 28.6 L 28.1 L POC Hct Plt Count 133 L MPV 12.1 H 11.5 H Neut % (Auto) 80.8 H Lymph % (Auto) 9.6 L Lymph # (Auto) [place] # (Auto) 1.00 H 1.48 H Absolute Neutrophils 9.14 H 12.64 H PT 14.6 H POC Total CO2 POC BUN BUN Glucose POC Glucose POC WB Ioniz Calcium GGT NT-Pro-B Natriuret Pep Triglycerides Cortisol AM Sample 02/08/21 02/08/21 02/08/21 05:31 05:30 05:30 WBC 16.4 H RBC 3.49 L Hgb 10.5 L Hct 31.0 L POC Hct Plt Count MPV 11.4 H Neut % (Auto) 88.0 H Lymph % (Auto) 5.7 L Lymph # (Auto) 0.93 L [place] # (Auto) 1.01 H Absolute Neutrophils 14.42 H PT POC Total CO2 POC BUN BUN 5 L Glucose 123 H POC Glucose POC WB Ioniz Calcium GGT NT-Pro-B Natriuret Pep Triglycerides Cortisol AM Sample 0.5 L 02/08/21 02/07/21 01:55 21:11 WBC RBC Hgb Hct POC Hct 33 L Plt Count MPV Neut % (Auto) Lymph % (Auto) Lymph # (Auto) [place] # (Auto) Absolute Neutrophils PT POC Total CO2 18 L POC BUN 4 L 4 L BUN Glucose POC Glucose 141 H 197 H POC WB Ioniz Calcium 1.08 L GGT NT-Pro-B Natriuret Pep Triglycerides Cortisol AM Sample Meds: Medications Albuterol Sulfate (Albuterol Sulfate 200 Puff Inhaler) 1 puff INH QIDP PRN PRN Reason: Wheezing Calcium Carbonate/Glycine (Calcium Carbonate 500 Mg Tab.Chew) 1,000 mg CHEWED Q4HP PRN PRN Reason: Dyspepsia Clonazepam (Clonazepam 0.5 Mg Tablet) 0.5 mg PO Q6 PRN PRN Reason: severe anxiety Last Admin: 02/10/21 09:57 Dose: 0.5 mg Documented by: Hydromorphone HCl (Hydromorphone 0.5 Mg/0.5 Ml Syringe) 1 mg IV Q2HP PRN; Protocol PRN Reason: Per Pain Protocol Last Admin: 02/09/21 06:16 Dose: 1 mg Documented by: Piperacillin Sod/Tazobactam (Sod 3.375 gm/ Dextrose) 50 mls @ 100 mls/hr IV Q6H [facility]; Protocol Last Infusion: 02/10/21 13:44 Dose: Infused Documented by: Lorazepam (Lorazepam 1 Mg Tablet) 1 mg PO Q4HP PRN PRN Reason: ANXIETY/SEDATION Last Admin: 02/10/21 06:28 Dose: 1 mg Documented by: Metoclopramide HCl (Metoclopramide 10 Mg/2 Ml Vial) 10 mg IV Q6H [facility] Last Admin: 02/10/21 09:56 Dose: 10 mg Documented by: Nortriptyline HCl (Nortriptyline 25 Mg Capsule) [address] [facility] Last Admin: 02/09/21 21:31 Dose: 25 mg Documented by: Ondansetron HCl (Ondansetron 4 Mg/2 Ml Vial) 4 mg IV Q6HP PRN PRN Reason: Nausea And Vomiting Last Admin: 02/09/21 09:15 Dose: 4 mg Documented by: Ondansetron HCl (Ondansetron 4 Mg Odt Tablet) 4 mg SL Q6HP PRN PRN Reason: Nausea And Vomiting Oxybutynin Chloride (Oxybutynin Chloride 5 Mg Tab.Xl.24h) 10 mg PO QDAY [facility] Last Admin: 02/10/21 09:53 Dose: 10 mg Documented by: Oxycodone HCl (Oxycodone Hcl 5 Mg Tablet) 10 mg PO Q4HP PRN; Protocol PRN Reason: Per Pain Protocol Last Admin: 02/09/21 16:01 Dose: 10 mg Documented by: Pantoprazole Sodium ([facility] 40 Mg [facility]t) [facility] Last Admin: 02/10/21 09:54 Dose: 40 mg Documented by: Desvenlafaxine 50 Mg Tablet Extended Release 24 Hr 1 dose PO QHS [facility] Last Admin: 02/09/21 21:32 Dose: Not Given Documented by: Sodium Chloride (0.9 % Sodium Chloride 10 Ml Syringe) 10 ml IV Q8 [facility] Last Admin: 02/10/21 12:51 Dose: 10 ml Documented by: Tramadol HCl (Tramadol 50 Mg Tablet) 50 mg PO BIDP PRN; Protocol PRN Reason: pain A/P Narrative A/P Narrative: Assessment and Plans: *Sinus tachycardia / hypotension post-op: d/t post-op hemorrhage. s/p ex lap & evacuation of the blood/clot by Dr. Gonzalez (02/08) -improving *Acute appendectomy s/p laparoscopic appendectomy, complicated by post-op hemorrhage: -per surgery & diet *Generalized anxiety disorder: Desvenlafaxine , Nortriptyline , Clonazepam PRN anxiety/panic attack *Post-surgical atelectasis vs infiltrate of the left lung base: -Supplemental oxygen therapy , Incentive spirometry -cbc w/ auto diff in the morning to trend WBC Time Spent With Patient Time: Total time spent is greater than 50% in coordination of care (as documented) at patient's floor/unit and/or counseling patient:
[2021-02-10] MEDS: oxyCODONE HCL 5 MG TABLET PO PRN (14:22)
[2021-02-10] MEDS: DESVENLAFAXINE 50 MG PO SCH (21:04)
[2021-02-10] MEDS: NORTRIPTYLINE 25 MG CAPSULE PO SCH (21:31)
[2021-02-11] MEDS: METOCLOPRAMIDE 10 MG/2 ML VIAL IV SCH (03:53)
[2021-02-11] MEDS: PIPERACILLIN SODIUM/TAZOBACTAM 3.375 GM in DEXTROSE 5% IN WATER 50 ML IV SCH (05:34)
[2021-02-11] MEDS: 0.9 % SODIUM CHLORIDE 10 ML SYRINGE IV SCH (05:34)
[2021-02-11 07:08] LABS: Basophils # (Auto) 0.04 K/mcL (0.00-0.30); Basophils % (Auto) 0.4 % (0.0-2.0); Eosinophils # (Auto) 0.43 K/mcL (0.00-0.70); Eosinophils % (Auto) 4.3 % (0.0-7.0); Hematocrit 31.7 % (34.1-44.9); Hemoglobin 10.7 g/dL (11.2-15.7); Lymphocytes # (Auto) 2.13 K/mcL (1.50-4.80); Lymphocytes % (Auto) 21.5 % (15.5-49.0); Mean Cell Volume 90.1 fL (80.0-100.0); Mean Corpuscular HGB Conc 33.8 g/dL (31.0-36.0); Monocytes # (Auto) 0.89 K/mcL (0.10-0.90); Neutrophils % (Auto) 64.8 % (38.0-78.0); Platelet Count 174 K/mcL (140-440); RBC 3.52 M/mcL (3.59-5.38); Red Cell Distribution Width 13.1 % (11.5-14.5); WBC 9.9 K/mcL (4.5-11.0)
[2021-02-11 07:34] LABS: Blood Urea Nitrogen 6 mg/dL (6-20); Calcium 8.3 mg/dL (8.6-10.4); Carbon Dioxide 20 mmol/L (22-30); Chloride 101 mmol/L (96-108); Glomerular Filtration Rate 109; Glucose 85 mg/dL (70-105)
[2021-02-11] MEDS: PANTOPRAZOLE 40 MG TABLET PO SCH (07:48)
--- NOTE | 2021-02-11 08:26 | Internal Med Progress Note ---
SUBJECTIVE Subjective Patient information: Note initiated : 02/11/21 at 8:25 am Service Date, if different from initiated Date: [] Patient: Lexus Koch a 40 y/o F admitted on 02/07/21 for abdominal pain. Chief Complaint: [] Principal diagnosis: Acute appendicitis; postoperative hemorrhage Interval history: History of present illness: Ms. Koch is a 40 year old F history of anxiety and irritable bowel syndrome, presented to the ED earlier today and was being diagnosed with appendicitis. Dr. Gonzalez performed an uncomplicated laparoscopic appendectomy with estimated blood loss of 5cc. She tolerated the procedure quite well. During her recovery in PACU, she developed sinus tachycardia with heart rate up from 110s bpm to 150s bpm, and also showing positive orthostatic hypotension. Patient denies any chest pain. She is c/o palpitation as well as anxiety about her overall condition and prognosis. She denies any shortness of breath. Currently denies any abdominal pain as well as any nausea or vomiting. She admitted to have episodes of diarrhea yesterday, and had been placed NPO today since presenting to the ED. ECG performed showing sinus tachycardia, no signs of acute ischemia otherwise. She is receiving her 1st L of fluid bolus. 02/08: Patient developed post-operative hemorrhage and hypotension. Dr. Gonzalez took her back to the OR at 0300 this morning and performed exploratory laparotomy with evacuation of clot, about 1250cc of blood and clot removed, with JORDAN drain placed. Patient currently c/o abdominal pain, diffused, mild to moderate. Denies chest pain or palpitation. Denies any SOB. Denies anxiety. Troponin <0.01, <0.01. Random cortisol 3.9, AM cortisol pending. TSH 1.38. 2D echocardiogram pending. 02/09: Repeat AM cortisol 0.3, low. Suspect adrenal insufficiency. Tachycardia with HR in the 110s bpm. Blood pressure within normal limits. Patient c/o moderate diffused abdominal pain. Also c/o anxiety. Denies any SOB. On 6L/min oxygen. Poor appetite. c/o lethargic. On GI soft diet. On Zosyn. CXR showing minor left lung base infiltrates vs atelectasis. 02/10: Tachycardia with HR in the 110s bpm. Tolerating GI soft diet. Has not passed any gas or stool. Denies any abdominal pain. Denies any chest pain or palpitation. Denies any SOB. Denies any anxiety. 02/11 No overnight event or new complaints. Patient feeling well. Constitutional Vitals: Vital Signs Temp Pulse Resp BP Pulse Ox 97 F 93 H 14 102/70 95 02/11/21 07:00 02/11/21 07:00 02/11/21 07:00 02/11/21 07:00 02/11/21 07:00 Period Temp Pulse Resp BP Sys/Dalton Pulse Ox Last 24 Hr 97 F-100.1 F 89-132 14-18 102-135/63-80 93-99 Intake and Output 02/10/21 02/11/21 02/11/21 21:59 05:59 13:59 Intake Total 500 550 50 Output Total 260 480 110 Balance 240 70 -60 Weight 82.554 kg Intake & Output: Intake & Output 02/10/21 02/11/21 02/11/21 21:59 05:59 13:59 Intake Total 500 550 50 Output Total 260 480 110 Balance 240 70 -60 Weight 82.554 kg Intake: IV 50 50 50 Zosyn 3.375 gm In Dextrose 5% 50 50 50 in Water 50 ml @ 100 mls/hr IV Q6H [facility] Rx#:[id number] Oral 450 500 Output: Drainage 110 50 Right Lower Abdomen 110 50 Drainage 150 130 60 Right Lower Abdomen 150 130 60 Void Amount 350 Other: Meal Lunch Percent of Meal Consumed 50% Feeding Ability Independent # Voids 4 1 Exam: General: Alert, Awake, No acute Distress, obese Eyes/N/T: EOMI, Head/Neck: neck supple, CV: RRR, No murmurs, Pulm: Clear b/l, no wheezing/rhonchi/rales Abd: soft, nontender, +BS x4 Ext: no clubbing/cyanosis/edema Neuro: Alert, no focal deficits, moves all extremities, Skin: warm/dry OBJ DATA Labs CBC & Chem 7: 02/11/21 05:29 02/11/21 05:29 Labs: Abnormal Lab Results 02/11/21 02/11/21 02/10/21 05:29 05:29 06:28 WBC RBC 3.52 L Hgb 10.7 L Hct 31.7 L Plt Count MPV 11.0 H Neut % (Auto) Lymph % (Auto) [place] # (Auto) Absolute Neutrophils PT Carbon Dioxide 20 L BUN 4 L Glucose 113 H Calcium 8.3 L GGT 37 H NT-Pro-B Natriuret Pep Triglycerides 151 H Cortisol AM Sample 02/10/21 02/09/21 02/09/21 06:28 08:28 05:44 WBC 11.5 H RBC 3.09 L Hgb 9.2 L Hct 28.3 L Plt Count 130 L MPV 11.4 H 11.5 H Neut % (Auto) Lymph % (Auto) [place] # (Auto) 1.11 H Absolute Neutrophils 8.29 H PT Carbon Dioxide BUN Glucose Calcium GGT NT-Pro-B Natriuret Pep 927.7 H Triglycerides Cortisol AM Sample 02/09/21 02/09/21 02/08/21 05:44 05:44 23:13 WBC 12.5 H RBC 3.07 L Hgb 9.3 L Hct 28.6 L Plt Count 133 L MPV 12.1 H Neut % (Auto) Lymph % (Auto) [place] # (Auto) 1.00 H Absolute Neutrophils 9.14 H PT 15.1 H Carbon Dioxide BUN Glucose Calcium GGT NT-Pro-B Natriuret Pep Triglycerides Cortisol AM Sample 0.3 L 02/08/21 02/08/21 02/08/21 16:30 08:20 05:31 WBC 15.6 H RBC 3.13 L Hgb 9.4 L Hct 28.1 L Plt Count MPV 11.5 H Neut % (Auto) 80.8 H Lymph % (Auto) 9.6 L [place] # (Auto) 1.48 H Absolute Neutrophils 12.64 H PT 14.6 H Carbon Dioxide BUN Glucose Calcium GGT NT-Pro-B Natriuret Pep Triglycerides Cortisol AM Sample 0.5 L Meds: Medications Albuterol Sulfate (Albuterol Sulfate 200 Puff Inhaler) 1 puff INH QIDP PRN PRN Reason: Wheezing Calcium Carbonate/Glycine (Calcium Carbonate 500 Mg Tab.Chew) 1,000 mg CHEWED Q 4HP PRN PRN Reason: Dyspepsia Clonazepam (Clonazepam 0.5 Mg Tablet) 0.5 mg PO Q6 PRN PRN Reason: severe anxiety Last Admin: 02/10/21 21:31 Dose: 0.5 mg Documented by: Hydromorphone HCl (Hydromorphone 0.5 Mg/0.5 Ml Syringe) 1 mg IV Q2HP PRN; Protocol PRN Reason: Per Pain Protocol Last Admin: 02/09/21 06:16 Dose: 1 mg Documented by: Piperacillin Sod/Tazobactam (Sod 3.375 gm/ Dextrose) 50 mls @ 100 mls/hr IV Q6H [facility]; Protocol Last Infusion: 02/11/21 06:15 Dose: Infused Documented by: Lorazepam (Lorazepam 1 Mg Tablet) 1 mg PO Q4HP PRN PRN Reason: ANXIETY/SEDATION Last Admin: 02/10/21 16:09 Dose: 1 mg Documented by: Metoclopramide HCl (Metoclopramide 10 Mg/2 Ml Vial) 10 mg IV Q6H [facility] Last Admin: 02/11/21 03:53 Dose: 10 mg Documented by: Metoprolol Tartrate (Metoprolol Tartrate 5 Mg/5 Ml Vial) 5 mg IV Q2HP PRN PRN Reason: Tachyarrhythmias Last Admin: 02/10/21 14:24 Dose: 5 mg Documented by: Nortriptyline HCl (Nortriptyline 25 Mg Capsule) 25 mg PO [facility] Last Admin: 02/10/21 21:31 Dose: 25 mg Documented by: Ondansetron HCl (Ondansetron 4 Mg/2 Ml Vial) 4 mg IV Q6HP PRN PRN Reason: Nausea And Vomiting Last Admin: 02/09/21 09:15 Dose: 4 mg Documented by: Ondansetron HCl (Ondansetron 4 Mg Odt Tablet) 4 mg SL Q6HP PRN PRN Reason: Nausea And Vomiting Oxybutynin Chloride (Oxybutynin Chloride 5 Mg Tab.Xl.24h) 10 mg PO QDAY [facility] Last Admin: 02/10/21 09:53 Dose: 10 mg Documented by: Oxycodone HCl (Oxycodone Hcl 5 Mg Tablet) 10 mg PO Q4HP PRN; Protocol PRN Reason: Per Pain Protocol Last Admin: 02/10/21 14:22 Dose: 10 mg Documented by: Pantoprazole Sodium ([facility]op[facility]ole 40 Mg Tablet) [facility] Last Admin: 02/11/21 07:48 Dose: 40 mg Documented by: Desvenlafaxine 50 Mg Tablet Extended Release 24 Hr [facility] Last Admin: 12/18/21 21:04 Dose: Not Given Documented by: Sodium Chloride (0.9 % Sodium Chloride 10 Ml Syringe) 10 ml IV Q8 [facility] Last Admin: 02/11/21 05:34 Dose: 10 ml Documented by: Tramadol HCl (Tramadol 50 Mg Tablet) 50 mg PO BIDP PRN; Protocol PRN Reason: pain Last Admin: 02/10/21 16:10 Dose: 50 mg Documented by: A/P Narrative A/P Narrative: Assessment and Plans: *Sinus tachycardia / hypotension post-op: d/t post-op hemorrhage. s/p ex lap & evacuation of the blood/clot by Dr. Gonzalez (02/08) -improved *Acute appendectomy s/p laparoscopic appendectomy, complicated by post-op hemorrhage: -per surgery & diet -on IV abx *Generalized anxiety disorder: Desvenlafaxine , Nortriptyline , Clonazepam PRN anxiety/panic attack *Post-surgical atelectasis vs infiltrate of the left lung base: -Supplemental oxygen therapy , Incentive spirometry Time Spent With Patient Time: Total time spent is greater than 50% in coordination of care (as documented) at patient's floor/unit and/or counseling patient:
[2021-02-11] MEDS: OXYBUTYNIN CHLORIDE 5 MG TAB.XL.24H PO SCH (09:30)
--- NOTE | 2021-02-11 10:26 | Discharge Summary ---
Discharge Provider Provider Patient information: Note initiated : 02/11/21 at 10:24 am Service Date, if different from initiated Date: [] Patient: Lexus Koch 40 y/o F admitted on 02/07/21 for abdominal pain. Chief Complaint: [] Date of admission: 02/07/21 22:33 Discharge date: 02/11/21 Primary care physician: Dom Shane DO Consults: 02/07/21 13:28 Consult to Physician [CONS] Stat Comment: Consulting Provider: Sabiha Gonzalez Reason For Exam: Physician to Consult 02/07/21 21:14 Consult to Physician [CONS] Routine Comment: STAT Consult Consulting Provider: Michael Higgins Reason For Exam: Physician to Consult COURSE Hospital Course Hospital course: Patient was admitted for a routine laparoscopic appendectomy, postoperatively patient had increased tachycardia and hypotension. Patient was taken back to the operating room where 3 L of blood was found in the patient's abdomen. Patient went through a full exploratory laparotomy without identification of a good bleeding source. Postoperatively patient's progressed without difficulty, her H&H has stabilized and her abdominal drain has become serous fluid. She is now ambulatory, tolerating a regular diet and has return of bowel function. Discharge diagnosis: Status post appendectomy Reason for admission: Acute appendicitis Procedures: Laparoscopic appendectomy. Laparoscopic exploration followed by exploratory laparotomy Time Spent with Patient Time attestation: Total time spent providing and/or coordinating discharge services: Time spent: Greater than 30 minutes Physical Examination Vital Signs Vital signs: Temp Pulse Resp BP Pulse Ox 97 F 93 H 14 102/70 95 02/11/21 07:00 02/11/21 07:00 02/11/21 07:00 02/11/21 07:00 02/11/21 07:00 Discharge Plan Patient/Caregiver Discharge Instructions Activity: increase activity as tolerated Diet: Regular Diet Activity Restrictions/Additional Instructions: Record drain output twice daily. Follow-up with Dr. Leslie in general surgery clinic next week to discuss when drain needs to be removed. Patient may shower with drain. Gradually increase activity as tolerated. Prescriptions: New oxycodone 5 mg Tablet 5 mg PO Q6H PRN (Reason: Per Pain Protocol) Qty: 7 0RF Continued clonazepam 0.5 mg tablet 0.5 mg PO QDAY PRN (Reason: severe anxiety) Qty: 20 1RF Rx Instructions: administer 30 minutes before bedtime oxybutynin chloride 10 mg tablet extended release 24hr 10 mg PO QDAY Qty: 90 1RF tramadol 50 mg tablet 50 mg PO BID PRN (Reason: pain) Qty: 60 0RF ibuprofen [Advil Liqui-Gel] 200 mg capsule 200 mg PO .COMPLEX 0RF Rx Instructions: 200 mg PO approx 10x daily; etonogestrel-ethinyl estradiol [NuvaRing] 0.12-0.015 mg/24 hr ring 1 vag ring vaginal Q4W Qty: 3 0RF Rx Instructions: leave in place for 3 weeks of a 4-week cycle nortriptyline 10 mg capsule 10 mg PO QHS Qty: 90 3RF albuterol sulfate 90 mcg/actuation HFA aerosol inhaler 1 inh inhalation QID Qty: 8.5 0RF desvenlafaxine 50 mg Tablet Extended Release 24 Hr 50 mg PO QHS 0RF Follow Up Plan Follow up with: Dom Shane DO [Primary Care Provider] - Sabiha Gonzalez MD [Physician] - 03/01/21 2:15 pm Patient Disposition: Home, Self-Care Hospital Course: Patient was admitted for and underwent an uneventful laparoscopic appendectomy. Postoperatively patient got progressively tachycardic and hypotensive, was taken back to the operating room and found to have approximately 3 L of mercy blood in the abdomen. Full expiration did not identify a good source of bleeding. Patient postop stabilized her hematocrit, became ambulatory, and is now tolerating a regular diet. Overall status at discharge: patient is progressing back to baseline Discharge Orders: Discharge Order (Routine); Ordered 02/11/21 Ordered By: Clifford Michael Pending Pending Pending: Resuscitation Status Resuscitate (Full Code) Diet GI Soft/Transitional Start Celine Feb 08 Clonazepam (Clonazepam 0.5 Mg Tablet) 0.5 mg PO Q6 PRN PRN Reason: severe anxiety Last Admin: 02/10/21 21:31 Dose: 0.5 mg Documented by: Admin: 02/10/21 09:57 Dose: 0.5 mg Documented by: JAMES Hydromorphone HCl (Hydromorphone 0.5 Mg/0.5 Ml Syringe) 1 mg IV Q2HP PRN; Protocol PRN Reason: Per Pain Protocol Last Admin: 02/09/21 06:16 Dose: 1 mg Documented by: Admin: 02/09/21 04:17 Dose: 1 mg Documented by: Admin: 02/08/21 23:22 Dose: 1 mg Documented by: Admin: 02/08/21 19:58 Dose: 1 mg Documented by: Admin: 02/08/21 16:06 Dose: 1 mg Documented by: Admin: 02/08/21 11:01 Dose: 1 mg Documented by: Admin: 02/08/21 05:16 Dose: 1 mg Documented by: Admin: 02/08/21 03:26 Dose: 1 mg Documented by: Admin: 02/07/21 20:26 Dose: 1 mg Documented by: SABIHA Piperacillin Sod/Tazobactam (Sod 3.375 gm/ Dextrose) 50 mls @ 100 mls/hr IV Q6H [facility]; Protocol Last Infusion: 02/11/21 06:15 Dose: 0 mls/hr Documented by: Admin: 02/11/21 05:34 Dose: 100 mls/hr Documented by: [email or web address] Infusion: 02/11/21 00:33 Dose: 0 mls/hr Documented by: Admin: 02/10/21 23:54 Dose: 100 mls/hr Documented by: Infusion: 02/10/21 18:20 Dose: 0 mls/hr Documented by: Admin: 02/10/21 17:33 Dose: 100 mls/hr Documented by: Infusion: 02/10/21 13:44 Dose: 0 mls/hr Documented by: Admin: 02/10/21 12:51 Dose: 100 mls/hr Documented by: Infusion: 02/10/21 06:59 Dose: 0 mls/hr Documented by: Admin: 02/10/21 05:53 Dose: 100 mls/hr Documented by: Infusion: 02/10/21 00:35 Dose: 0 mls/hr Documented by: Admin: 02/10/21 00:02 Dose: 100 mls/hr Documented by: Infusion: 02/09/21 18:15 Dose: 0 mls/hr Documented by: Admin: 02/09/21 17:20 Dose: 100 mls/hr Documented by: Infusion: 02/09/21 12:25 Dose: 0 mls/hr Documented by: Admin: 02/09/21 11:55 Dose: 100 mls/hr Documented by: Infusion: 02/09/21 06:40 Dose: 0 mls/hr Documented by: Admin: 02/09/21 06:10 Dose: 100 mls/hr Documented by: Infusion: 02/09/21 00:30 Dose: 100 mls/hr Documented by: Admin: 02/09/21 00:00 Dose: 100 mls/hr Documented by: Infusion: 02/08/21 17:54 Dose: 0 mls/hr Documented by: Admin: 02/08/21 17:24 Dose: 100 mls/hr Documented by: Infusion: 02/08/21 12:30 Dose: 0 mls/hr Documented by: Admin: 02/08/21 12:00 Dose: 100 mls/hr Documented by: Infusion: 02/08/21 07:00 Dose: 0 mls/hr Documented by: Admin: 02/08/21 06:30 Dose: 100 mls/hr Documented by: Admin: 02/08/21 03:12 Dose: Not Given Documented by: Infusion: 02/07/21 18:49 Dose: 0 mls/hr Documented by: Admin: 02/07/21 18:02 Dose: 100 mls/hr Documented by: [email or web address] Lorazepam (Lorazepam 1 Mg Tablet) 1 mg PO Q4HP PRN PRN Reason: ANXIETY/SEDATION Last Admin: 02/10/21 16:09 Dose: 1 mg Documented by: Admin: 02/10/21 06:28 Dose: 1 mg Documented by: Admin: 02/09/21 16:01 Dose: 1 mg Documented by: FREDIS Metoclopramide HCl (Metoclopramide 10 Mg/2 Ml Vial) 10 mg IV Q6H [facility] Last Admin: 02/11/21 03:53 Dose: 10 mg Documented by: Admin: 02/10/21 21:31 Dose: 10 mg Documented by: Admin: 02/10/21 17:33 Dose: 10 mg Documented by: Admin: 02/10/21 09:56 Dose: 10 mg Documented by: Admin: 02/10/21 03:34 Dose: 10 mg Documented by: Admin: 02/09/21 21:31 Dose: 10 mg Documented by: Admin: 02/09/21 16:15 Dose: 10 mg Documented by: Admin: 02/09/21 11:55 Dose: Not Given Documented by: Admin: 02/09/21 09:59 Dose: 10 mg Documented by: FREDIS Metoprolol Tartrate (Metoprolol Tartrate 5 Mg/5 Ml Vial) 5 mg IV Q2HP PRN PRN Reason: Tachyarrhythmias Last Admin: 02/10/21 14:24 Dose: 5 mg Documented by: JAMES Nortriptyline HCl (Nortriptyline 25 Mg Capsule) 25 mg PO [facility] Last Admin: 02/10/21 21:31 Dose: 25 mg Documented by: Admin: 02/09/21 21:31 Dose: 25 mg Documented by: RADHA Ondansetron HCl (Ondansetron 4 Mg/2 Ml Vial) 4 mg IV Q6HP PRN PRN Reason: Nausea And Vomiting Last Admin: 02/09/21 09:15 Dose: 4 mg Documented by: Admin: 02/07/21 21:11 Dose: 4 mg Documented by: SABIHA Oxybutynin Chloride (Oxybutynin Chloride 5 Mg Tab.Xl.24h) 10 mg PO QDAY [facility] Last Admin: 02/11/21 09:30 Dose: 10 mg Documented by: Admin: 02/10/21 09:53 Dose: 10 mg Documented by: Admin: 02/09/21 09:05 Dose: 10 mg Documented by: Admin: 02/08/21 10:16 Dose: 10 mg Documented by: FREDIS Oxycodone HCl (Oxycodone Hcl 5 Mg Tablet) 10 mg PO Q4HP PRN; Protocol PRN Reason: Per Pain Protocol Last Admin: 02/10/21 14:22 Dose: 10 mg Documented by: Admin: 02/09/21 16:01 Dose: 10 mg Documented by: Admin: 02/09/21 09:59 Dose: 10 mg Documented by: Admin: 02/09/21 05:47 Dose: 10 mg Documented by: Admin: 02/09/21 00:20 Dose: 10 mg Documented by: Admin: 02/08/21 17:25 Dose: 10 mg Documented by: FREDIS Pantoprazole Sodium (Pantoprazole 40 Mg Tablet) 40 mg PO QAMAC [facility] Admin: 02/11/21 07:48 Dose: 40 mg Documented by: [email or web address] Admin: 02/10/21 09:54 Dose: 40 mg Documented by: Admin: 02/09/21 07:37 Dose: 40 mg Documented by: Admin: 02/08/21 07:35 Dose: 40 mg Documented by: FREDIS Desvenlafaxine 50 Mg Tablet Extended Release 24 Hr 1 dose PO QHS [facility] Admin: 02/10/21 21:04 Dose: Not Given Documented by: Admin: 02/09/21 21:32 Dose: Not Given Documented by: Admin: 02/08/21 19:59 Dose: Not Given Documented by: YONATHAN Sodium Chloride (0.9 % Sodium Chloride 10 Ml Syringe) 10 ml IV Q8 [facility] Admin: 02/11/21 05:34 Dose: 10 ml Documented by: Admin: 02/10/21 21:31 Dose: 10 ml Documented by: Admin: 02/10/21 12:51 Dose: 10 ml Documented by: Admin: 02/10/21 05:53 Dose: 10 ml Documented by: Admin: 02/09/21 21:32 Dose: 10 ml Documented by: Admin: 02/09/21 15:12 Dose: 10 ml Documented by: Admin: 02/09/21 05:24 Dose: 10 ml Documented by: Admin: 02/08/21 23:37 Dose: 10 ml Documented by: Admin: 02/08/21 12:00 Dose: 10 ml Documented by: Admin: 02/08/21 06:30 Dose: 10 ml Documented by: Admin: 02/07/21 20:52 Dose: Not Given Documented by: SABIHA Tramadol HCl (Tramadol 50 Mg Tablet) 50 mg PO BIDP PRN; Protocol PRN Reason: pain Last Admin: 02/10/21 16:10 Dose: 50 mg Documented by: JAMES Shift Summary 02/11/21 02:13 Shift Summary by Venus Mixon Primary Diagnosis: Acute appendicitis, postoperative hemorrhage Registration Status: IN Day of Hospitalization: admitted 02/07 Date of Surgery (if applicable): Lap appy on 02/07, Went back into surgery on 02/08 for postoperative hemorrhage. Pertinent Medical Dx/Issues (may be more than one): Per smiths report on 02/08 " large volume of old blood and clot in pelvis with unclotted blood in upper abdomen ; no bleeding from port sites or operative sites area of mesoappendix and appendiceal stump without bleeding; no fresh blood after evacuation of blood and clot but slow oozing ; all port sites closed; mesentery of small bowel and colon without evidence of bleeding; about 1250cc of blood and clot removed." HX: anxiety, panic attacks, Fibromyalgia, polyuria, OCD, PTSD, depression and Lupus. Interventions (O2, wounds, diuresis, etc): Midline incision to abdomen with gauze and film dressing in place, replaced today. JORDAN drain to R lower abdomen. Lap site to LLQ with corrie and film dressing, dressing change today. IS up to 2000. Vital Signs with Trends: Patient had fever of 100.1 but came down without intervention. tachy in low 100s, did jump up to 140's but did not stay. Meds (abo, pain, BP, etc): Oxycodone,Ativan, Klonopin (changed to Q6 PRN). Lines/Tubes: RAC, SL. JORDAN drain draining serosanguineous. Lab/Rad results: Cardiac Rhythm (if applicable), alarms, trends: Sinus Tach Date of last BM: 02/06. Pt reports flatulence. Elimination: Voiding adequately in bathroom. Recommendations/questions for MD (DC [place]? DC CM? PICC needed?): Trends (is the patient improving?): Pt still very anxious but pain seems to be improved. Activity: Repositions herself in bed. Expected date of discharge: TBD Discharge Plan (needs, disposition, etc): From home with and son. AOX4. pleasant and cooperative. Up independently with FWW. Walked in hallway during dietary services manager. Initialized on 02/11/21 02:13 - END OF NOTE
[2021-02-11] MEDS: oxyCODONE HCL 5 MG TABLET PO PRN (11:42)
--- NOTE | 2021-02-12 08:46 | Operative Note ---
DATE OF OPERATION: 02/08/2021 PREOPERATIVE DIAGNOSES: Postoperative hemorrhage with hypotension. POSTOPERATIVE DIAGNOSES: Major intraperitoneal hemorrhage with no discernible major vessel bleed. PROCEDURE: Exploratory laparotomy with evacuation of clot. SURGEON: Sabiha Gonzalez M.D. FINDINGS: Large volume of old clot in the abdomen with clot in the pelvis with unclotted blood in the upper abdomen. There was no bleeding from the port sites or the operative sites in the area of the appendiceal stump or the mesoappendix. There was no fresh blood after evacuation of the blood and clot, but she did have some oozing. DESCRIPTION OF PROCEDURE: Under general anesthesia, the patient's abdomen was prepped and draped in a sterile field. Theresa from the previously-placed incisions in the supraumbilical midline were removed. Lower midline incision was made and extended into the peritoneum. Upon entering the peritoneum, there was a large volume of unclotted blood and some old clot. All of this was evacuated and the pelvis was packed off. The base of the cecum was identified and there was no bleeding from the appendiceal stump of the mesoappendix. The uterus, tubes and ovaries were visualized and there was no bleeding in this area. Irrigation in the upper abdomen was carried out until the fluid was basically clear. No fresh bleeding was noted. There did not appear to be any bleeding from the three port sites. There was no evidence of bleeding from the mesentery of the small bowel or colon. The major vessels in the pelvis were inspected and the retroperitoneum had not been violated. About 1250 mL of blood and clot were removed. The patient received two doses of tranexamic acid intraoperatively. After being satisfied that there was no pulsatile bleeding and no major venous bleeding, it was elected to close the abdomen. A #10 Jose drain was placed in the pelvis simply to be a monitor to give a tip-off if further bleeding should occur and to give some information as to when the bleeding would stop. This was brought out through a stab incision in the right lower quadrant. Repeat evaluation of the omentum, the transverse colon, descending colon, mesentery, right colon, cecum, and the pelvic viscera was carried out with no evidence of bleeding. The peritoneum and fascia were closed with running #1 Prolene and the subcutaneous fascia was closed with running 2-0 Monocryl. Skin was closed with theresa. The drain was secured with 2-0 nylon. The patient remained stable throughout the procedure. She was awakened and transferred to the postanesthetic care unit in stable, satisfactory condition. LCS:elizabet Job ID: [id number] Doc ID: [id number] Sabiha Gonzalez M.D.
--- NOTE | 2021-02-12 08:59 | Operative Note ---
DATE OF OPERATION: 02/07/2021 PREOPERATIVE DIAGNOSIS: Acute appendicitis. POSTOPERATIVE DIAGNOSIS: Acute appendicitis. PROCEDURE: Laparoscopic appendectomy. SURGEON: Sabiha Gonzalez M.D. FINDINGS: Acute suppurative appendicitis. DESCRIPTION OF PROCEDURE: Under general anesthesia, the patient's abdomen was prepped and draped in a sterile field. Supraumbilical incision was made in the midline. Veress needle was inserted and abdomen was insufflated with 2.5 liters of CO2. A 12 mm port was placed. Laparoscope was placed. Under videoscopic guidance, a 5 mm port was placed in the suprapubic midline and a 12 mm port in the left lower quadrant. The patient was placed in deep Trendelenburg position and rotated to the left. The appendix was found in the pelvis lateral to the cecum. It was grasped until the base was encountered. A window was made in the mesoappendix at the base. Endo JESÚS stapler was used to transect the appendix at the base. The mesoappendix was transected with an Endo JESÚS stapler. The appendix was placed in an Endopouch and retrieved. Irrigation was carried out until the fluid was clear. There was no need for a drain. CO2 was allowed to escape from the abdomen and the ports were removed. The fascia at the umbilicus was closed with interrupted 0 Vicryl. Skin incisions were closed with corrie. The patient tolerated the procedure well. Tegaderm dressings were placed. She was awakened, transferred to a bed, and taken to the postanesthetic care unit in satisfactory condition. LCS:elizabet Job ID: [id number] Doc ID: [id number] Sabiha Gonzalez M.D.
== END 2021-02-11 11:45 | disposition home or self-care (01) | DRG 339 ==
LOC: ED 11:01 → ICU 15:13 → SUR 15:13 → MEDSUR 17:05 → OBSVTOIN 22:33 → MEDSUR 02-09 16:10
PROVIDERS: ADMIT Family Medicine Adult Medicine; ATTEND Surgery